=== PATIENT | female | born 1940 | race Caucasian/White ===

== ENCOUNTER 2017-02-13 20:05 | Inpatient (IN) | payer MEDICARE, BC ==
--- NOTE | 2017-02-13 20:31 | EDM.PDOC ---
ED HPI GENERAL MEDICAL PROBLEM - General Chief Complaint: ENT Problem Stated Complaint: TOOTH PAIN FEVER RIB PAINS Time Seen by Provider: 02/13/17 20:30 Source of Information: Reports: Patient History Limitations: Reports: No Limitations - History of Present Illness INITIAL COMMENTS - FREE TEXT/NARRATIVE: 76-year-old female presents to the ED with believe 2 separate problems. First is severe pain in her left temporomandibular joint area with marked swelling. She states this seemed to occur after having dental extraction of a left upper molar about a month ago by dentist in [place]. Dentist yesterday and he felt all was healing up well. Is quite obvious she has a severe swelling on the left temporomandibular joint area and has marked trismus. She hasn't been able to eat solid food for several days. Last 34 days she's developed fever and chills at nighttime. Now is developing a prone productive cough with pleuritic left- sided chest pains. No color to sputum identified. No hemoptysis. Unable to eat at all today. Feels weak dizzy and lightheaded when she stands. Last dose of Aleve was taken at noon today for fever relief. Of note she has rheumatoid arthritis for greater than 20 years and is immunocompromised. She takes 6 tablets of methotrexate on Mondays. She takes prednisone 5 mg once daily. 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 Onset: Gradual Onset Date: 02/11/17 (Gradually were noted fever chills and left-sided chest pain. Swelling left temporomandibular joint area anterior to the left ear for almost a month.) Duration: Day(s): Location: Reports: Face (Left temporomandibular joint area.), Chest (See history of present illness) Quality: Reports: Other (Pressure pain in her left face in the temporal mandibular joint area. Anal is sharp and stabbing with movement and particularly trying to open her mouth. She has severe trismus with only ability to open 2 cm in the midline incisors.) Severity: Severe Improves with: Reports: None Worsens with: Reports: Other (Trying to open her mouth.) Context: Denies: Activity ( Chest pain is worsened by coughing and deep breathing.), Exercise, Lifting, Sick Contact, Trauma, Other Associated Symptoms: Reports: Chest Pain, Cough (Left pleuritic sided chest pain.), Fever/Chills (The last 3 nights.), Loss of Appetite, Malaise, Shortness of Breath, Weakness, Other (Dizzy and lightheaded when standing). Denies: cough w sputum ( Minimal sputum production), Diaphoresis ( Had rigors last night.), Headaches, Nausea/Vomiting, Rash, Seizure, Syncope Treatments PROJECT MGR: Reports: NSAIDS (Aleve taken at noon today 2 tablets) Left Oral/Mouth Pain Score (Numeric/FACES): 10 - Related Data Allergies Allergy/AdvReac Type Severity Reaction Status Date / Time No Known Allergies Allergy Verified 02/13/17 20:19 Home Meds: Home Meds Methotrexate Sodium [Methotrexate] 6 tab PO WEEKLY 02/13/17 [History] atorvaSTATin [Lipitor] 40 mg PO DAILY 02/13/17 [History] predniSONE [Prednisone] 5 mg PO DAILY 02/13/17 [History] Past Medical History Cardiovascular History: Reports: High Cholesterol Musculoskeletal History: Reports: RA - Past Surgical History Musculoskeletal Surgical History: Reports: Arthroscopic Knee, Knee Replacement ( Left total knee replacement the right needs to be done.) Social & Family History - Tobacco Use Smoking Status *Q: Never Smoker - Caffeine Use Caffeine Use: Reports: Coffee - Recreational Drug Use Recreational Drug Use: No - Living Situation & Occupation Living situation: Reports: Occupation: Retired ED ROS ENT - Review of Systems Review Of Systems: See Below Constitutional: Reports: Fever, Chills, Malaise, Weakness, Fatigue, Decreased Appetite, Weight Loss HEENT: Reports: Ear Pain, Other (Severe pain left face anterior to her left ear in the distribution of the temporomandibular joint.). Denies: Eye Discharge, Eye Pain, Hearing Loss, Nosebleed, Nose Pain, Rhinitis, Sinus Problem, Throat Pain, Throat Swelling, Vertigo, Vision Change Respiratory: Reports: Shortness of Breath, Pleuritic Chest Pain, Cough (Left side). Denies: Wheezing, Hemoptysis ( minimal sputum production.) Cardiovascular: Reports: Chest Pain, Dyspnea on Exertion, Lightheadedness, Palpitations. Denies: Blood Pressure Problem (See history present illness), Claudication, Orthopnea Endocrine: Reports: Fatigue (Is aware of her heart rate beating fast in her chest.) GI/Abdominal: Reports: Decreased Appetite. Denies: Abdominal Pain, Nausea, Stool Incontinence, Vomiting : Reports: Incontinence (Usually stress-induced) Musculoskeletal: Reports: Neck Pain (Has chronic rheumatoid arthritis for greater than 20 years.), Shoulder Pain, Arm Pain, Back Pain, Joint Pain, Joint Swelling Skin: Reports: Bruising Neurological: Reports: No Symptoms Psychiatric: Reports: No Symptoms Hematologic/Lymphatic: Reports: No Symptoms Immunologic: Reports: No Symptoms ED EXAM, ENT - Physical Exam Exam: See Below Exam Limited By: No Limitations General Appearance: Alert, WD/WN, Mild Distress, Other (Does feel quite warm to palpation. Nurses report initial temperature 37.4 but it seems much higher than this.) Eye Exam: Bilateral Eye: Normal Inspection Ears: Normal External Exam, Normal TMs, Other (Has an obvious swelling proximal be 5 cm in diameter anterior to the right ear in the distribution of the left temporomandibular joint. It is warm to palpation suggesting underlying inflammation. I suspect this is a activation of rheumatoid arthritis affecting the temporomandibular joint. Less likely would be an infection spreading from a dental abscess into this area.) Mouth/Throat: Normal Inspection, Normal Gums, Normal Lips, Other (Spectral of the area where she had the tooth resected left upper shows that is healing satisfactorily with no sign of conjunctival swelling or infection.) Head: Atraumatic, Normocephalic, Facial Swelling (As above adjacent to the left ear 5 cm swelling in the distribution of the temporomandibular joint.) Neck: Normal Inspection, Limited Range of Motion, Other (Marked crepitus on movement of the neck laterally.). No: Supple, Non-Tender, Full Range of Motion Respiratory/Chest: Chest Non-Tender, Respiratory Distress, Decreased Breath Sounds (Mildly decreased breath sounds to both lower lung cleary.), Rales (Mild tachypnea.), Rhonchi (left lung base left lung mid laterally.). No: Wheezing Cardiovascular: Normal Peripheral Pulses, No Murmur, Tachycardia GI/Abdominal: Normal Bowel Sounds (Resting tachycardia at 1 35/m.), Soft, Non- Tender, No Organomegaly, No Distention Extremities: No Pedal Edema, Joint Swelling (Noted in the MCP joints and knees.) , Other (Mild kyphosis thoracic spine). No: Pedal Edema, Slow Capillary Refill Neurological: Alert, Oriented, CN II-XII Intact, Normal Cognition Psychiatric: Normal Affect Skin: Warm, Dry, Intact, Normal Color, No Rash Course - Vital Signs Last Recorded V/S: Last Vital Signs Temp 37.4 C 02/13/17 20:12 Pulse 135 H 02/13/17 20:12 Resp 18 02/13/17 20:12 BP 132/69 02/13/17 20:12 Pulse Ox 91 L 02/13/17 20:48 - Orders/Labs/Meds Orders: Active Orders 24 hr Category Date Time Status Admission Status [Patient Status] [ADT] Routine ADT 02/13/17 23:32 Ordered EKG Documentation Completion [RC] STAT Care 02/13/17 20:48 Active Oxygen Therapy [RC] ASDIRECTED Care 02/13/17 20:48 Active Chest 2V [CR] Stat Exams 02/13/17 20:47 Taken Chest PE [Ang Chest] [CT] Stat Exams 02/13/17 21:49 Taken Maxillofacial w/o CM [Max Facial Sinus wo Cont] [CT] Exams 02/13/17 20:49 Taken Stat CULTURE BLOOD [BC] Stat Lab 02/13/17 21:00 Received CULTURE BLOOD [BC] Stat Lab 02/13/17 21:10 Received CULTURE URINE [RM] Stat Lab 02/13/17 23:37 Uncollected LACTIC ACID [CHEM] Stat Lab 02/13/17 22:46 Ordered Dextrose 5%-0.9% NaCl [Dextrose 5%-Normal Saline] 1,000 Med 02/13/17 21:00 Active ml IV ASDIRECTED Levofloxacin/Dextrose 5%-Water [Levaquin in D5W 750 MG/ Med 02/13/17 22:38 Active 150 ML] 750 mg Premix Bag 1 bag IV ONETIME Sodium Chloride 0.9% [Normal Saline] 100 ml Med 02/13/17 22:15 Active IV ASDIRECTED Sodium Chloride 0.9% [Saline Flush] Med 02/13/17 22:04 Active 10 ml FLUSH ONETIME PRN Blood Culture x2 Reflex Set [OM.PC] Stat Oth 02/13/17 20:49 Ordered Medication Orders Dextrose/Sodium Chloride (Dextrose 5%-Normal Saline) 1,000 mls @ 999 mls/hr IV ASDIRECTED AGUSTIN Last Admin: 02/13/17 21:14 Dose: 999 mls/hr Sodium Chloride (Normal Saline) 100 mls @ 80 mls/hr IV ASDIRECTED AGUSTIN Last Admin: 02/13/17 22:32 Dose: 80 mls/hr Levofloxacin/Dextrose 750 mg/ (Premix) 150 mls @ 100 mls/hr IV ONETIME ONE Stop: 02/14/17 00:07 Last Admin: 02/13/17 22:59 Dose: 100 mls/hr Sodium Chloride (Saline Flush) 10 ml FLUSH ONETIME PRN PRN Reason: IV FLUSH Last Admin: 02/13/17 22:32 Dose: 10 ml Labs: Laboratory Tests 02/13/17 02/13/17 02/13/17 Range/Units 21:00 21:00 21:00 WBC 19.74 H (3.98-10.04) K/mm3 RBC 3.79 L (3.98-5.22) M/mm3 Hgb 10.7 L (11.2-15.7) gm/L Hct 33.6 L (34.1-44.9) % MCV 88.7 (79.4-94.8) fl MCH 28.2 (25.6-32.2) pg MCHC 31.8 L (32.2-35.5) g/dl RDW Std Deviation 54.1 H (36.4-46.3) fL Plt Count 364 (182-369) K/mm3 MPV 9.1 L (9.4-12.3) fl Neutrophils % (Manual) 87 H (40-60) % Band Neutrophils % 2 (0-10) % Lymphocytes % (Manual) 8 L (20-40) % Atypical Lymphs % 0 % Monocytes % (Manual) 3 (2-10) % Eosinophils % (Manual) 0 L (0.7-5.8) % Basophils % (Manual) 0 L (0.1-1.2) Toxic Granulation Few Platelet Estimate Adequate RBC Morph Comment Normal ESR (0-20) mm/hr PT 11.4 (8.0-13.0) SECONDS INR 1.04 D-Dimer, Quantitative (0.19-0.59) mg/L Sodium 138 (136-145) mEq/L Potassium 3.5 (3.5-5.1) mEq/L Chloride 103 (98-107) mEq/L Carbon Dioxide 24 (21-32) mEq/L Anion Gap 14.5 (5-15) BUN 30 H (7-18) mg/dL Creatinine 0.9 (0.55-1.02) mg/dL Est Cr Clr Drug Dosing 42.72 mL/min Estimated GFR (MDRD) > 60 (>60) mL/min BUN/Creatinine Ratio 33.3 H (14-18) Glucose 112 (83-115) mg/dL Calcium 8.7 (8.5-10.1) mg/dL Magnesium 1.6 L (1.8-2.4) mg/dl Total Bilirubin 0.8 (0.2-1.0) mg/dL AST 26 (15-37) U/L ALT 23 (14-59) U/L Alkaline Phosphatase 134 H (46-116) U/L Troponin I < 0.017 (0.00-0.056) ng/mL C-Reactive Protein 26.4 H* (<1.0) mg/dL B-Natriuretic Peptide (0-100) pg/mL Total Protein 6.5 (6.4-8.2) g/dl Albumin 2.1 L (3.4-5.0) g/dl Globulin 4.4 gm/dL Albumin/Globulin Ratio 0.5 L (1-2) Urine Color (Yellow) Urine Appearance (Clear) Urine pH (5.0-8.0) Ur Specific [place] (1.005-1.030) Urine Protein (Negative) Urine Glucose (UA) (Negative) Urine Ketones (Negative) Urine Occult Blood (Negative) Urine Nitrite (Negative) Urine Bilirubin (Negative) Urine Urobilinogen (0.2-1.0) Ur Leukocyte Esterase (Negative) Urine RBC (0-5) /hpf Urine WBC (0-5) /hpf Ur Epithelial Cells (0-5) /hpf Urine Bacteria (FEW) /hpf Hyaline Casts (0-5) /lpf Waxy Casts (0-5) /lpf Urine Mucus (FEW) /hpf 02/13/17 02/13/17 02/13/17 Range/Units 21:00 21:00 21:00 WBC (3.98-10.04) K/mm3 RBC (3.98-5.22) M/mm3 Hgb (11.2-15.7) gm/L Hct (34.1-44.9) % MCV (79.4-94.8) fl MCH (25.6-32.2) pg MCHC (32.2-35.5) g/dl RDW Std Deviation (36.4-46.3) fL Plt Count (182-369) K/mm3 MPV (9.4-12.3) fl Neutrophils % (Manual) (40-60) % Band Neutrophils % (0-10) % Lymphocytes % (Manual) (20-40) % Atypical Lymphs % % Monocytes % (Manual) (2-10) % Eosinophils % (Manual) (0.7-5.8) % Basophils % (Manual) (0.1-1.2) Toxic Granulation Platelet Estimate RBC Morph Comment ESR 111 H (0-20) mm/hr PT (8.0-13.0) SECONDS INR D-Dimer, Quantitative 4.36 H (0.19-0.59) mg/L Sodium (136-145) mEq/L Potassium (3.5-5.1) mEq/L Chloride (98-107) mEq/L Carbon Dioxide (21-32) mEq/L Anion Gap (5-15) BUN (7-18) mg/dL Creatinine (0.55-1.02) mg/dL Est Cr Clr Drug Dosing mL/min Estimated GFR (MDRD) (>60) mL/min BUN/Creatinine Ratio (14-18) Glucose (83-115) mg/dL Calcium (8.5-10.1) mg/dL Magnesium (1.8-2.4) mg/dl Total Bilirubin (0.2-1.0) mg/dL AST (15-37) U/L ALT (14-59) U/L Alkaline Phosphatase (46-116) U/L Troponin I (0.00-0.056) ng/mL C-Reactive Protein (<1.0) mg/dL B-Natriuretic Peptide 101 H (0-100) pg/mL Total Protein (6.4-8.2) g/dl Albumin (3.4-5.0) g/dl Globulin gm/dL Albumin/Globulin Ratio (1-2) Urine Color (Yellow) Urine Appearance (Clear) Urine pH (5.0-8.0) Ur Specific [place] (1.005-1.030) Urine Protein (Negative) Urine Glucose (UA) (Negative) Urine Ketones (Negative) Urine Occult Blood (Negative) Urine Nitrite (Negative) Urine Bilirubin (Negative) Urine Urobilinogen (0.2-1.0) Ur Leukocyte Esterase (Negative) Urine RBC (0-5) /hpf Urine WBC (0-5) /hpf Ur Epithelial Cells (0-5) /hpf Urine Bacteria (FEW) /hpf Hyaline Casts (0-5) /lpf Waxy Casts (0-5) /lpf Urine Mucus (FEW) /hpf 02/13/17 Range/Units 22:43 WBC (3.98-10.04) K/mm3 RBC (3.98-5.22) M/mm3 Hgb (11.2-15.7) gm/L Hct (34.1-44.9) % MCV (79.4-94.8) fl MCH (25.6-32.2) pg MCHC (32.2-35.5) g/dl RDW Std Deviation (36.4-46.3) fL Plt Count (182-369) K/mm3 MPV (9.4-12.3) fl Neutrophils % (Manual) (40-60) % Band Neutrophils % (0-10) % Lymphocytes % (Manual) (20-40) % Atypical Lymphs % % Monocytes % (Manual) (2-10) % Eosinophils % (Manual) (0.7-5.8) % Basophils % (Manual) (0.1-1.2) Toxic Granulation Platelet Estimate RBC Morph Comment ESR (0-20) mm/hr PT (8.0-13.0) SECONDS INR D-Dimer, Quantitative (0.19-0.59) mg/L Sodium (136-145) mEq/L Potassium (3.5-5.1) mEq/L Chloride (98-107) mEq/L Carbon Dioxide (21-32) mEq/L Anion Gap (5-15) BUN (7-18) mg/dL Creatinine (0.55-1.02) mg/dL Est Cr Clr Drug Dosing mL/min Estimated GFR (MDRD) (>60) mL/min BUN/Creatinine Ratio (14-18) Glucose (83-115) mg/dL Calcium (8.5-10.1) mg/dL Magnesium (1.8-2.4) mg/dl Total Bilirubin (0.2-1.0) mg/dL AST (15-37) U/L ALT (14-59) U/L Alkaline Phosphatase (46-116) U/L Troponin I (0.00-0.056) ng/mL C-Reactive Protein (<1.0) mg/dL B-Natriuretic Peptide (0-100) pg/mL Total Protein (6.4-8.2) g/dl Albumin (3.4-5.0) g/dl Globulin gm/dL Albumin/Globulin Ratio (1-2) Urine Color Yellow (Yellow) Urine Appearance Clear (Clear) Urine pH 6.5 (5.0-8.0) Ur Specific [place] 1.020 (1.005-1.030) Urine Protein 2+ H (Negative) Urine Glucose (UA) 1+ H (Negative) Urine Ketones Trace H (Negative) Urine Occult Blood Negative (Negative) Urine Nitrite Positive H (Negative) Urine Bilirubin Negative (Negative) Urine Urobilinogen 4.0 H (0.2-1.0) Ur Leukocyte Esterase Trace H (Negative) Urine RBC 0-5 (0-5) /hpf Urine WBC 10-20 H (0-5) /hpf Ur Epithelial Cells 0-5 (0-5) /hpf Urine Bacteria Many H (FEW) /hpf Hyaline Casts 0-5 (0-5) /lpf Waxy Casts 0-5 (0-5) /lpf Urine Mucus Moderate H (FEW) /hpf Meds: Medications Generic Name Dose Route Start Last Admin Trade Name Freq PRN Reason Stop Dose Admin Dextrose/Sodium Chloride 1,000 mls @ 999 mls/hr 02/13/17 21:00 02/13/17 21:14 Dextrose 5%-Normal Saline IV 999 mls/hr ASDIRECTED AGUSTIN Administration Sodium Chloride 100 mls @ 80 mls/hr 02/13/17 22:15 02/13/17 22:32 Normal Saline IV 80 mls/hr ASDIRECTED AGUSTIN Administration Levofloxacin/Dextrose 750 mg/ 150 mls @ 100 mls/hr 02/13/17 22:38 02/13/17 22 :59 Premix IV 02/14/17 00:07 100 mls/hr ONETIME ONE Administration Sodium Chloride 10 ml 02/13/17 22:04 02/13/17 22:32 Saline Flush FLUSH 10 ml ONETIME PRN Administration IV FLUSH Discontinued Medications Generic Name Dose Route Start Last Admin Trade Name Michael PRN Reason Stop Dose Admin Clonazepam 1 mg 02/13/17 23:22 Klonopin PO 02/13/17 23:23 ONETIME ONE Hydromorphone HCl 0.5 mg 02/13/17 23:22 Dilaudid IVPUSH 02/13/17 23:23 ONETIME ONE Ibuprofen 600 mg 02/13/17 20:46 02/13/17 21:12 Motrin PO 02/13/17 20:47 600 mg ONETIME ONE Administration Iopamidol 100 ml 02/13/17 22:04 02/13/17 22:32 Isovue-370 (76%) IVPUSH 02/13/17 22:05 60 ml ONETIME ONE Administration Methylprednisolone Sodium Succinate 40 mg 02/13/17 22:00 02/13/17 22:26 Solu-Medrol IVPUSH 02/13/17 22:01 40 mg ONETIME ONE Administration Ondansetron HCl 4 mg 02/13/17 23:22 Zofran IVPUSH 02/13/17 23:23 ONETIME ONE - Radiology Interpretation Free Text/Narrative:: 76-year-old female presents to the ED with a history of fever and chills 3 nights with rigors last night. Associated fever of 102.3 at home. She feels warm to palpation her as well. Left-sided chest pain with pleuritic component. A mild cough that is minimally productive of sputum. Associated severe pain and swelling in the distribution of the left temporomandibular joint since having a tooth resected in that area about a month ago. She has severe trismus. This is limited ability to take fluids and solids for the last month. Resting tachycardia of 1 35/m partially aggravated by fever but partially aggravated by ongoing depletion. She is immunocompromised because of rheumatoid arthritis treatment with methotrexate and prednisone 5 mg daily. I.e. steroid dependent. Concern for flareup of rheumatoid arthritis affecting the left temporomandibular joint. Less likely infection spread to the area. Suspect possible pneumonia left lung field. Plan 2 view chest x-ray to be obtained CT of the maxillofacial bones including the mandible. Labs to include blood cultures 2 sedimentation rate and CRP. D-dimer also ordered. IV will be D5 normal saline at open. Motrin 600 mg by mouth by mouth for fever relief - Re-Assessments/Exams Free Text/Narrative Re-Assessment/Exam: 02/13/17 21:58 oxygen saturations are staying around 9891% on room air. She'll therefore be placed on oxygen 2 L/m by nasal cannula. She is splinting on the left side. Chest x-ray done shows a mild left-sided pleural effusion without obvious pneumonia. Silhouette is normal. She has hyperinflated lung cleary. She states she used to smoke but quit many years ago. PT came back 11.4 with an INR 1.04. D-dimer came back elevated at 4.36. This is likely secondary to underlying infective process. Therefore CT pulmonary angiogram will be done to rule out pulmonary embolism and also better look at the cause of the left-sided pleural effusion. Crowding is 0.9 therefore she will be able to tolerate contrast. There are CBC is pending. I will give her Solu-Medrol 40 mg IV push at this time as she is steroid dependent. Waiting on labs before deciding on antibiotic therapy. CT of the facial bones and particularly views of the left mandible shows cystic degeneration within the head of the mandible . There is diffuse moderate osteopenia appreciable .Temporomandibular joint degenerative disease bilaterally. coworker will thinning of the left condylar head and neck are also appreciated as response to osteal lucent medullary process may be causing the severe pain. Cannot rule out a pathologic hairline fracture in this area. 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 He also appreciates some air or gas collections in the area of recent molar extraction nonexclusive's of secondary infection of the socket. She doesn't have pain in this area to correlate with this finding. no dislocation or abnormalities or fractures. Appears to be significant inflammation of the left TMJ secondary to rheumatoid arthritis flareup in this area. He rides intravenously initially and then orally will likely take the swelling down. 02/13/17 22:38 lab work is returned revealing an elevated white count at 19.74 with 87% neutrophils and 2% bands. Hemoglobin is low at 10.7 likely due to anemia of chronic disease. Hematocrit is 33.6. Plan is 364,000. Sedimentation rate is markedly elevated at 111. PT is 11.4 with an INR of 1.04. D-dimer was elevated at 4.36 as previously mentioned. CRP is markedly elevated at 26.4 BNP 101. Sodium 138 potassium low at 3.5. Chloride 103 bicarbonate 24. And a gap is normal at 14.5 B1 is mildly elevated at 30 creatinine was 0.9 EGFR is greater than 60. Plan we'll start her on Levaquin [address] pulmonary grams been completed and shows no evidence of pulmonary embolism. Several granulomas or nodules noted in the left lung field some of them appear to be attached to the pleura. There is a small left-sided pleural effusion. No consolidation is evident to suggest a pneumonic process. There is one nodule in the right upper lobe of the lung as well. Awaiting radiologist's report in this regard. 02/13/17 23:06 radiology reports no evidence of pulmonary embolism either. His comment on the lung nodules is that of a 1.9 cm x 1.1 cm left upper lobe inferior laterally scattered nodular atelectasis throughout both lungs bilobate nodule measuring 1.5 cm x 2 cm right upper lobe anteriorly rounded nodule posteriorly right upper lobe measuring 9.3 mm 12 mm diameter round nodule laterally at the lingula anterior to the bilobate nodule measuring 15 x 5.3 mm. Depending congestion in both lower lobes minimal infiltrate felt to be present in the left lower lobe likely early pneumonia. Does comment on the small left- sided pleural effusion. Appreciate small hiatal hernia with distended esophagus with mild wall thickening. Therefore impression is multiple nodules bilaterally with scattered areas of nodular infiltrative change atypical infection is possible neoplasm cannot be excluded. Patient will be admitted to the hospital and I will contact Dr. Schmidt intercell connector placer hospitalist in this regard. 02/13/17 23:38 urinalysis is on the back as well. It shows 2+ protein 1+ glucose. It is nitrate positive with trace leukocyte esterase and 10-20 WBCs and moderate bacteria reported also moderate mucus. A urine culture was therefore ordered. Did speak with Dr. Frazier and patient will be admitted to the med surgery floor on telemetry. Orders were written. Departure - Departure Time of Disposition: 23:29 Disposition: Admitted As Inpatient 67 Condition: Fair Clinical Impression: Acute febrile illness, Pleural effusion, left, Multiple pulmonary nodules, Disorder of left temporomandibular joint, Immunocompromised due to corticosteroids, Urinary tract infection Pneumonia Qualifiers: Pneumonia type: due to unspecified organism Laterality: left Lung location: lower lobe of lung Qualified Code(s): J18.1 - Lobar pneumonia, unspecified organism Rheumatoid arthritis Qualifiers: Rheumatoid arthritis location: multiple sites Rheumatoid factor presence: unspecified presence Qualified Code(s): M06.9 - Rheumatoid arthritis, unspecified - Discharge Information Referrals: PCP,None [Primary Care Provider] - Forms: ED Department Discharge - My Orders Last 24 Hours: My Active Orders 02/13/17 20:47 Chest 2V [CR] Stat 02/13/17 20:48 EKG Documentation Completion [RC] STAT Oxygen Therapy [RC] ASDIRECTED 02/13/17 20:49 Maxillofacial w/o CM [Max Facial Sinus wo Cont] [CT] Stat Blood Culture x2 Reflex Set [OM.PC] Stat 02/13/17 21:00 CULTURE BLOOD [BC] Stat Dextrose 5%-0.9% NaCl [Dextrose 5%-Normal Saline] 1,000 ml IV ASDIRECTED 02/13/17 21:10 CULTURE BLOOD [BC] Stat 02/13/17 21:49 Chest PE [Ang Chest] [CT] Stat 02/13/17 22:04 Sodium Chloride 0.9% [Saline Flush] 10 ml FLUSH ONETIME PRN 02/13/17 22:15 Sodium Chloride 0.9% [Normal Saline] 100 ml IV ASDIRECTED 02/13/17 22:38 Levofloxacin/Dextrose 5%-Water [Levaquin in D5W 750 MG/150 ML] 750 mg Premix Bag 1 bag IV ONETIME 02/13/17 22:46 LACTIC ACID [CHEM] Stat 02/13/17 23:32 Admission Status [Patient Status] [ADT] Routine 02/13/17 23:37 CULTURE URINE [RM] Stat - Assessment/Plan Last 24 Hours: My Active Orders 02/13/17 20:47 Chest 2V [CR] Stat 02/13/17 20:48 EKG Documentation Completion [RC] STAT Oxygen Therapy [RC] ASDIRECTED 02/13/17 20:49 Maxillofacial w/o CM [Max Facial Sinus wo Cont] [CT] Stat Blood Culture x2 Reflex Set [OM.PC] Stat 02/13/17 21:00 CULTURE BLOOD [BC] Stat Dextrose 5%-0.9% NaCl [Dextrose 5%-Normal Saline] 1,000 ml IV ASDIRECTED 02/13/17 21:10 CULTURE BLOOD [BC] Stat 02/13/17 21:49 Chest PE [Ang Chest] [CT] Stat 02/13/17 22:04 Sodium Chloride 0.9% [Saline Flush] 10 ml FLUSH ONETIME PRN 02/13/17 22:15 Sodium Chloride 0.9% [Normal Saline] 100 ml IV ASDIRECTED 02/13/17 22:38 Levofloxacin/Dextrose 5%-Water [Levaquin in D5W 750 MG/150 ML] 750 mg Premix Bag 1 bag IV ONETIME 02/13/17 22:46 LACTIC ACID [CHEM] Stat 02/13/17 23:32 Admission Status [Patient Status] [ADT] Routine 02/13/17 23:37 CULTURE URINE [RM] Stat
[2017-02-13] MEDS ORDERED: Ibuprofen 600 MG Tab PO ONE (20:46)
[2017-02-13] MEDS ORDERED: Dextrose 5%-0.9% NaCl 1,000 ML IV SCH (21:00)
[2017-02-13] MEDS ORDERED: methylPREDNISolone Sodium Succinate 40 MG/1 ML SDV IVPUSH ONE (22:00)
[2017-02-13] MEDS ORDERED: Sodium Chloride 0.9% 10 ML Syringe FLUSH PRN (22:04)
[2017-02-13] MEDS ORDERED: Iopamidol 755 Mg/ML 100 ML Bottle IVPUSH ONE (22:04)
[2017-02-13] MEDS ORDERED: Sodium Chloride 0.9% 100 ML IV SCH (22:15)
[2017-02-13] MEDS ORDERED: Levofloxacin/Dextrose 5%-Water 750 MG in Premix Bag 1 BAG IV ONE (22:38)
[2017-02-13] MEDS ORDERED: HYDROmorphone 0.5 MG/0.5 ML Syringe IVPUSH ONE (23:22)
[2017-02-13] MEDS ORDERED: Ondansetron 4 MG/2 ML SDV IVPUSH ONE (23:22)
[2017-02-13] MEDS ORDERED: ClonazePAM 1 MG Tab PO ONE (23:22)
[2017-02-14] MEDS ORDERED: Ondansetron 4 MG Tab.DIS PO PRN (01:41)
[2017-02-14] MEDS ORDERED: Dextrose 5%-0.9% NaCl 1,000 ML IV SCH (02:15)
[2017-02-14] MEDS: Potassium Chloride 100 ML IV SCH ×4 (02:55→13:17)
--- NOTE | 2017-02-14 07:33 | PCM.HP ---
H&P History of Present Illness - General Date of Service: 02/14/17 Admit Problem/Dx: Admission Diagnosis/Problem Admission Diagnosis/Problem Fever Source of Information: Patient, Family, Old Records, Provider, RN Notes Reviewed History Limitations: Reports: No Limitations - History of Present Illness Initial Comments - Free Text/Narative: This is a 76-year-old elderly white female with past medical history of hyperlipidemia and degenerative joint disease who comes in to the emergency department with 2 separate complaints: 1) left temporo-mandibular pain associated with edema status post tooth extraction and 2) left sided pleuritic chest pain associated with some productive cough along with fever and chills. Patient also reports reduced intake due to his jaw pain. She feels weak, fatigue , shortness of breath, and lightheaded/dizzy when she gets up.Patient recently had her upper molar taken out about a month ago by a dentist in her local town. She followed up with him a couple of days ago and felt it was healing all well. Patient is currently taking NSAID daily for treatment of her symptoms but w/o much relief. She also carries a history of rheumatoid arthritis more than 20 years now daily and she takes methotrexate 6 tablets on Mondays and 5 mg of prednisone daily. Patient follows Dr. Felder" in [facility] for her RA. Initial workup in the emergency department shows a CBC significant for WBC of 19.74, hemoglobin of 10.7, hematocrit of 33.6, neutrophils of 87%, and ESR of 111. Coagulation study shows PT of 11.4, INR of 1.04, and d-dimer O4.36. Her chemistry is remarkable for BUN of 30, admission of 1.6, alkaline phosphatase of 134, CRP of 26.4, BNP of 101 and albumin of 2.1. The UA is suggestive of urinary tract infection. CT scan of her maxillofacial without contrast V-rad report reads: Complex changes of fibrous dysplasia or possibly decreased within the patient to Rafaela pathologic fracture at or near the TMJ on the left with D and resulting recurrent pain. Recent left mandibular molar extraction with subtle gas collection exclusive of secondary infection of socket. CT scan with contrast V-rad report reads multiple nodules bilaterally with scattered areas of nodular infiltrative change, atypical infection is possible. Neoplasm cannot be excluded. PET scan follow-up recommended. Patient was admitted last night for Pneumonia, UTI and Disorder of temporo- mandibular joint. She is full code. .. Left Oral/Mouth Pain Score (Numeric/FACES): 10 - Related Data Allergies/Adverse Reactions: Allergies Allergy/AdvReac Type Severity Reaction Status Date / Time No Known Allergies Allergy Verified 02/13/17 20:19 Home Medications: Home Meds Methotrexate Sodium [Methotrexate] 6 tab PO WEEKLY 02/13/17 [History] atorvaSTATin [Lipitor] 40 mg PO BEDTIME 02/13/17 [History] predniSONE [Prednisone] 5 mg PO BEDTIME 02/13/17 [History] Calcium Carbonate [Calcium] 500 mg PO BEDTIME 02/14/17 [History] Folic Acid 1 mg PO BEDTIME 02/14/17 [History] Past Medical History Cardiovascular History: Reports: High Cholesterol [employer] OFFICER History: Reports: Other OB/BYN History: vulvaectomy (2004) Musculoskeletal History: Reports: RA Immunologic History: Reports: Immunosuppression Dermatologic History: Reports: Benign Melanoma - Infectious Disease History Infectious Disease History: Reports: Chicken Pox, Influenza, Measles, Shingles - Past Surgical History GI Surgical History: Reports: Colonoscopy, Polypectomy Musculoskeletal Surgical History: Reports: Arthroscopic Knee, Knee Replacement Dermatological Surgical History: Reports: Skin Biopsy Social & Family History - Family History Family Medical History: Noncontributory - Tobacco Use Smoking Status *Q: Former Smoker Used Tobacco, but Quit: Yes Month Tobacco Last Used: 08/17/1968 Tobacco Use Comment: quit smoking 50 years ago Second Hand Smoke Exposure: No - Caffeine Use Caffeine Use: Reports: Coffee - Alcohol Use Date of Last Drink: 02/06/17 - Recreational Drug Use Recreational Drug Use: No - Living Situation & Occupation Living situation: Reports: Occupation: Retired H&P Review of Systems - Review of Systems: Review Of Systems: ROS reveals no pertinent complaints other than HPI. Review of Systems Comment:: No overnight issues. She feels much better now. She has no new complaints. 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 No obvious facial swelling/erythema. Unable to fully open her mouth.) Neck: Supple, Trachea Midline, Lymphadenopathy. No: Full Range of Motion, JVD Lungs: Normal Respiratory Effort, Decreased Breath Sounds, Rales, Rhonchi, Other (no tachypnea) Cardiovascular: Regular Rate, Regular Rhythm Abdomen: Normal Bowel Sounds, Soft. No: Pelvis Stable, Organomegaly, Tenderness (Female) Exam: Deferred Rectal (Female) Exam: Deferred Back Exam: Normal Inspection, Decreased Range of Motion Extremities: Normal Inspection, Normal Pulses, Other (Multiple joint swelling ) . No: Clubbing, Cyanosis, Calf Tenderness, Edema Peripheral Pulses: 2+: Posterior Tibial (L), Posterior Tibial (R), Dorsalis Pedis (L), Dorsalis Pedis (R) Skin: Warm, Dry, Intact Neuro Extensive - Mental Status: Oriented x3, Normal Cognition, Memory Intact Neuro Extensive - Motor, Sensory, Reflexes: CN II-XII Intact, Normal Gait Psychiatric: Alert, Normal Affect, Normal Mood - Patient Data Result Diagrams: 02/14/17 08:55 02/14/17 08:55 EKG INTERPRETATION EKG Date: 02/13/17 Time: 21:52 Rhythm: Other (Sinus Tachycardia) Rate (Beats/Min): 121 [place]: LAD-Left [place] Deviation *Q Meaningful Use (ADM) - VTE *Q VTE Criteria *Q: - Stroke *Q Stroke Criteria *Q: - AMI *Q AMI Criteria *Q: Problem List Initiated/Reviewed/Updated: Yes Orders Last 24hrs: Active Orders 24 hr Category Date Time Status Up With Assistance [RC] DAILY Care 02/14/17 01:41 Active Vaccines to be Administered [RC] PER UNIT ROUTINE Care 02/14/17 04:01 Active Regular Diet [DIET] Diet 02/14/17 Breakfast Active CBC W/O DIFF,HEMOGRAM [HEME] MOTH@0700 Lab 02/16/17 07:00 Ordered CBC W/O DIFF,HEMOGRAM [HEME] MOTH@0700 Lab 02/19/17 07:00 Ordered CBC W/O DIFF,HEMOGRAM [HEME] MOTH@0700 Lab 02/23/17 07:00 Ordered CBC W/O DIFF,HEMOGRAM [HEME] MOTH@0700 Lab 02/26/17 07:00 Ordered CBC W/O DIFF,HEMOGRAM [HEME] MOTH@0700 Lab 03/02/17 07:00 Ordered CBC W/O DIFF,HEMOGRAM [HEME] MOTH@0700 Lab 03/05/17 07:00 Ordered CULTURE URINE [RM] Stat Lab 02/13/17 22:45 Received Dextrose 5%-0.9% NaCl [Dextrose 5%-Normal Saline] 1,000 Med 02/14/17 02:15 Active ml IV ASDIRECTED Diphth,Pertuss(Acell),Tet Vac [Boostrix] Med 02/16/17 04:00 Once 0.5 ml IM .ONCE ONE Enoxaparin [Lovenox] Med 02/14/17 09:00 Active 40 mg SUBCUT DAILY Ibuprofen [Motrin] Med 02/14/17 01:41 Active 600 mg PO Q6H PRN Lactated Ringers [Ringers, Lactated] 1,000 ml Med 02/14/17 01:45 Active IV ASDIRECTED Ondansetron [Zofran ODT] Med 02/14/17 01:41 Active 4 mg PO Q6H PRN Potassium Chloride [KCl 10 MEQ in Water 100 ML] 100 ml Med 02/14/17 02:15 Active IV ASDIRECTED Resuscitation Status Routine Resus Stat 02/14/17 01:38 Ordered Medication Orders Diphtheria/Tetanus/Acell Pertussis (Boostrix) 0.5 ml IM .ONCE ONE Stop: 02/16/17 04:01 Enoxaparin Sodium (Lovenox) 40 mg SUBCUT DAILY [facility] Lactated Ringer's (Ringers, Lactated) 1,000 mls @ 125 mls/hr IV ASDIRECTED AGUSTIN Dextrose/Sodium Chloride (Dextrose 5%-Normal Saline) 1,000 mls @ 75 mls/hr IV ASDIRECTED AGUSTIN Last Admin: 02/14/17 02:47 Dose: 75 mls/hr Potassium Chloride (Kcl 10 Meq In Water 100 Ml) 100 mls @ 50 mls/hr IV ASDIRECTED AGUSTIN Last Admin: 02/14/17 06:17 Dose: 50 mls/hr Infusion: 02/14/17 04:55 Dose: 50 mls/hr Admin: 02/14/17 02:55 Dose: 50 mls/hr Ibuprofen (Motrin) 600 mg PO Q6H PRN PRN Reason: Fever Ondansetron HCl (Zofran Odt) 4 mg PO Q6H PRN PRN Reason: Nausea/Vomiting Assessment/Plan Comment:: Assessment/Plan: Acute: Community Acquired PNA w/ Immuno-compromised State - Risk factors: Pulmonary RA - Received IV leavquin in ED overnight - Continue IV Levaquin and will add Zosyn for pharmacy to dose due to immuno- compromised state - Probiotic TID - IS as directed - Serial CXR - Supplemental O2 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 Puentes, [facility] in [place] - We have no baseline chest CT scan on her - Continue MTX and Oral Steroid - Defer PET scan out patient until she follows up with her [facility] [employer] UTI - UA pos for UTI - Consider yeast infection: due to MTX and Steroid - Pending UA Cx/Sx - Continue IV Abx Leukoctyosis - Demargination vs Infection - She is on steroid daily - CRP/ESR is a poor marker at this time (these are elevated in patient with hyped-up immune system) - Will continue to monitor Elevated D-Dimer - 4.36 - 2/2 PNA and Pleural Effusion - CTA negative for PE Hypomagnesemia - Mg 1.6 - Likely from inadequate intake due to TMJ problem - Will replete and monitor 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
[2017-02-14] MEDS ORDERED: Temazepam 15 MG Cap PO PRN (08:40)
[2017-02-14] MEDS ORDERED: Bisacodyl 5 MG Tab PO PRN (08:40)
[2017-02-14] MEDS ORDERED: Polyethylene Glycol 3350 Powder 17 GM Packet PO PRN (08:40)
[2017-02-14] MEDS ORDERED: HYDROmorphone 1 MG/ML Syringe IVPUSH PRN (08:40)
[2017-02-14] MEDS ORDERED: Albuterol/Ipratropium 3.0-0.5 MG/3 ML Neb Soln NEB PRN (08:40)
[2017-02-14] MEDS ORDERED: Docusate Sodium 100 MG Cap PO PRN (08:40)
[2017-02-14] MEDS ORDERED: Promethazine 12.5 MG in Sodium Chloride 0.9% 50 ML IV PRN (08:40)
[2017-02-14] MEDS ORDERED: LORazepam 2 MG/ML MDV IV PRN (08:40)
[2017-02-14] MEDS ORDERED: hydrALAZINE 20 MG/ML SDV IVPUSH PRN (08:46)
[2017-02-14] MEDS ORDERED: Metoprolol Tartrate 5 MG/5 ML SDV IVPUSH PRN (08:46)
[2017-02-14] MEDS ORDERED: Piperacillin/Tazobactam 4.5 GM in Sodium Chloride 0.9% 100 ML IV ONE (09:00)
[2017-02-14] MEDS ORDERED: Famotidine 20 MG Tab PO SCH (09:00)
[2017-02-14] MEDS: Saccharomyces Boulardii (Probiotic) 250 MG Cap PO SCH ×3 (09:29→21:51)
[2017-02-14] MEDS: Enoxaparin 40 MG/0.4 ML Syringe SUBCUT SCH (09:29)
[2017-02-14] MEDS ORDERED: Magnesium Sulfate/Water 2 GM in Premix Bag 1 BAG IV ONE (10:00)
[2017-02-14] MEDS: Potassium Chloride 20 MEQ Tab.ER PO SCH ×2 (12:14→12:24)
[2017-02-14] MEDS: Ibuprofen 600 MG Tab PO PRN (13:15)
[2017-02-14] MEDS: Piperacillin/Tazobactam 4.5 GM in Sodium Chloride 0.9% 100 ML IV SCH (16:03)
[2017-02-14] MEDS: Lactated Ringers 1,000 ML IV SCH (17:33)
--- NOTE | 2017-02-14 19:00 | PCM.SN ---
- Free Text/Narrative Note: Patient seen and examined with present at bedside. She is doing much better. She is now sating well on RA. She has no new complaints. She would like to have some protein shakes, chocolate flavor.
[2017-02-14] MEDS ORDERED: Levofloxacin/Dextrose 5%-Water 750 MG in Premix Bag 1 BAG IV SCH ×2 (20:45→21:00)
[2017-02-14] MEDS: Rosuvastatin 10 MG Tab PO SCH (21:51)
[2017-02-14] MEDS: Folic Acid 1 MG Tab PO SCH (21:51)
[2017-02-14] MEDS: predniSONE 5 MG Tab PO SCH (21:51)
[2017-02-14] MEDS: Calcium Carbonate 500 MG Tab.Chew PO SCH (21:51)
[2017-02-14] MEDS: Acetaminophen/HYDROcodone 325-5 MG Tab PO PRN (23:37)
[2017-02-15] MEDS: Piperacillin/Tazobactam 4.5 GM in Sodium Chloride 0.9% 100 ML IV SCH ×3 (01:44→16:50)
[2017-02-15] MEDS: Lactated Ringers 1,000 ML IV SCH (01:44)
[2017-02-15] MEDS: Famotidine 20 MG Tab PO SCH (08:05)
[2017-02-15] MEDS: Saccharomyces Boulardii (Probiotic) 250 MG Cap PO SCH ×3 (08:05→21:38)
[2017-02-15] MEDS: Enoxaparin 40 MG/0.4 ML Syringe SUBCUT SCH (08:05)
--- NOTE | 2017-02-15 10:55 | PCM.PN ---
- General Info Date of Service: 02/15/17 Admission Dx/Problem (Free Text): Admission Diagnosis/Problem Admission Diagnosis/Problem Fever Subjective Update: Follow Up Functional Status: Reports: pain controlled, tolerating diet, ambulating, urinating. Denies: new symptoms - Review of Systems General: Denies: Fever, Weakness, Fatigue, Malaise, Chills HEENT: Reports: no symptoms Pulmonary: Denies: shortness of breath Cardiovascular: Denies: Chest Pain Gastrointestinal: Denies: Abdominal pain, Nausea, Vomiting Genitourinary: Reports: no symptoms Musculoskeletal: Reports: no symptoms Skin: Reports: no symptoms Neurological: Denies: Confusion, Difficulty Walking, Weakness, Gait Disturbance Psychiatric: Denies: depression, anxiety, agitation, hallucinations Systems Review Comment:: No overnight issues. She slept on and off last night but otherwise she feels pretty good. Her Hgb dropped to 8.5 this am. No GI or active bleeding reported. Her WBC went up but CRP is down. Her intake has improved. She has no new complaints. - Patient Data Vitals - most recent: Last Vital Signs Temp 36.6 C 02/15/17 07:46 Pulse 64 02/15/17 07:46 Resp 18 02/15/17 07:46 BP 130/69 02/15/17 07:46 Pulse Ox 96 02/15/17 07:46 Weight - most recent: 60.555 kg I&O - last 24 hours: Intake & Output 02/14/17 02/15/17 02/15/17 22:59 06:59 14:59 Intake Total 2079 6286 Output Total 651 650 Balance 1428 1706 Lab Results last 24 hrs: Laboratory Results - last 24 hr 02/15/17 02/15/17 Range/Units 05:29 05:29 WBC 17.18 H (3.98-10.04) K/mm3 RBC 3.02 L (3.98-5.22) M/mm3 Hgb 8.5 L (11.2-15.7) gm/L Hct 27.7 L (34.1-44.9) % MCV 91.7 (79.4-94.8) fl MCH 28.1 (25.6-32.2) pg MCHC 30.7 L (32.2-35.5) g/dl RDW Std Deviation 55.8 H (36.4-46.3) fL Plt Count 256 (182-369) K/mm3 MPV 9.7 (9.4-12.3) fl Neut % (Auto) 90.0 H (34.0-71.1) % Lymph % (Auto) 4.7 L (19.3-51.7) % [place] % (Auto) 4.7 (4.7-12.5) % Eos % (Auto) 0.1 L (0.7-5.8) Baso % (Auto) 0.1 (0.1-1.2) % Neut # (Auto) 15.48 H (1.56-6.13) K/mm3 Lymph # (Auto) 0.81 L (1.18-3.74) K/mm3 [place] # (Auto) 0.80 H (0.24-0.36) K/mm3 Eos # (Auto) 0.01 L (0.04-0.36) K/mm3 Baso # (Auto) 0.01 (0.01-0.08) K/mm3 Manual Slide Review Abnormal smear Sodium 140 (136-145) mEq/L Potassium 4.7 (3.5-5.1) mEq/L Chloride 110 H (98-107) mEq/L Carbon Dioxide 22 (21-32) mEq/L Anion Gap 12.7 (5-15) BUN 19 H (7-18) mg/dL Creatinine 1.0 (0.55-1.02) mg/dL Est Cr Clr Drug Dosing 38.44 mL/min Estimated GFR (MDRD) 54 (>60) mL/min BUN/Creatinine Ratio 19.0 H (14-18) Glucose 131 H (83-115) mg/dL Calcium 7.9 L (8.5-10.1) mg/dL Magnesium 2.2 (1.8-2.4) mg/dl C-Reactive Protein 15.6 H* (<1.0) mg/dL Med Orders - Current: Current Medications Hydrocodone Bitart/Acetaminophen ([place] 325-5 Mg) 1 tab PO Q4H PRN PRN Reason: Pain (moderate 4-6) Last Admin: 02/14/17 23:37 Dose: 1 tab Albuterol/Ipratropium (Duoneb 3.0-0.5 Mg/3 Ml) 3 ml NEB Q4H PRN PRN Reason: Shortness Of Breath/wheezing Bisacodyl (Dulcolax) 5 mg PO DAILY PRN PRN Reason: Constipation Calcium Carbonate/Glycine (Tums) 500 mg PO BEDTIME [facility] Last Admin: 02/14/17 21:51 Dose: 500 mg Diphtheria/Tetanus/Acell Pertussis (Boostrix) 0.5 ml IM .ONCE ONE Stop: 02/16/17 04:01 Docusate Sodium (Colace) 100 mg PO BID PRN PRN Reason: Constipation Enoxaparin Sodium (Lovenox) 40 mg SUBCUT DAILY [facility] Last Admin: 02/15/17 08:05 Dose: 40 mg Famotidine (Pepcid) 20 mg PO DAILY [facility] Last Admin: 02/15/17 08:05 Dose: 20 mg Folic Acid (Folic Acid) 1 mg PO BEDTIME [facility] Last Admin: 02/14/17 21:51 Dose: 1 mg Hydralazine HCl (Apresoline) 20 mg IVPUSH Q4H PRN PRN Reason: Hypertension Hydromorphone HCl (Dilaudid) 0.25 mg IVPUSH Q2H PRN PRN Reason: Pain (severe 7-10) Promethazine HCl 12.5 mg/ (Sodium Chloride) 50.5 mls @ 100 mls/hr IV Q6H PRN PRN Reason: Nausea/Vomiting Piperacillin Sod/Tazobactam (Sod 4.5 gm/ Sodium Chloride) 100 mls @ 25 mls/hr IV Q8H [facility] Last Admin: 02/15/17 08:06 Dose: 25 mls/hr Levofloxacin/Dextrose 750 mg/ (Premix) 150 mls @ 100 mls/hr IV Q48H [facility] Ibuprofen (Motrin) 600 mg PO Q6H PRN PRN Reason: Fever Last Admin: 02/14/17 13:15 Dose: 600 mg Lorazepam (Ativan) 0.5 mg IV Q6H PRN PRN Reason: Anxiety Magnesium Sulfate (Pharmacy To Dose - Magnesium Replacement) 1 dose .XX ASDIRECTED [facility] Methotrexate (Methotrexate) 15 mg PO Mo@2100 [facility] Metoprolol Tartrate (Lopressor) 5 mg IVPUSH Q4H PRN PRN Reason: Tachycardia Naproxen (Naprosyn) 375 mg PO Q12HR [facility] Last Admin: 02/15/17 08:05 Dose: 375 mg Ondansetron HCl (Zofran Odt) 4 mg PO Q6H PRN PRN Reason: Nausea/Vomiting Ondansetron HCl (Zofran) 4 mg IV Q6H PRN PRN Reason: Nausea/Vomiting Polyethylene Glycol (Miralax) 17 gm PO DAILY PRN PRN Reason: Constipation Potassium Chloride (Pharmacy To Dose - Potassium Replacement) 1 dose .XX ASDIRECTED [facility] Prednisone (Prednisone) 5 mg PO BEDTIME [facility] Last Admin: 02/14/17 21:51 Dose: 5 mg Rosuvastatin Calcium (Crestor) 10 mg PO BEDTIME [facility] Last Admin: 02/14/17 21:51 Dose: 10 mg Saccharomyces Boulardii (Florastor) 250 mg PO TID [facility] Last Admin: 02/15/17 08:05 Dose: 250 mg Senna/Docusate Sodium (Senna Plus) 1 tab PO BID PRN PRN Reason: Constipation Temazepam (Restoril) 15 mg PO BEDTIME PRN PRN Reason: Sleep Discontinued Medications Clonazepam (Klonopin) 1 mg PO ONETIME ONE Stop: 02/13/17 23:23 Last Admin: 02/13/17 23:37 Dose: 1 mg Famotidine (Pepcid) 20 mg PO BID [facility] Last Admin: 02/14/17 09:29 Dose: 20 mg Hydromorphone HCl (Dilaudid) 0.5 mg IVPUSH ONETIME ONE Stop: 02/13/17 23:23 Last Admin: 02/13/17 23:36 Dose: 0.5 mg Dextrose/Sodium Chloride (Dextrose 5%-Normal Saline) 1,000 mls @ 999 [facility] Last Admin: 02/13/17 21:14 Dose: 999 mls/hr Sodium Chloride (Normal Saline) 100 mls @ 80 [facility] Last Admin: 02/13/17 22:32 Dose: 80 mls/hr Levofloxacin/Dextrose 750 mg/ (Premix) 150 mls @ 100 mls/hr IV ONETIME ONE Stop: 02/14/17 00:07 Last Admin: 02/13/17 22:59 Dose: 100 mls/hr Potassium Chloride 40 meq/ (Dextrose/Sodium Chloride) 1,020 mls @ 125 mls/hr IV ASDIRECTED [facility] Lactated Ringer's (Ringers, Lactated) 1,000 mls @ 125 mls/hr IV ASDIRECTED [facility] Last Admin: 02/15/17 01:44 Dose: 125 mls/hr Dextrose/Sodium Chloride (Dextrose 5%-Normal Saline) 1,000 mls @ 75 mls/hr IV ASDIRECTED [facility] Last Admin: 02/14/17 02:47 Dose: 75 mls/hr Potassium Chloride (Kcl 10 Meq In Water 100 Ml) 100 mls @ 50 mls/hr IV ASDIRECTED [facility] Last Admin: 02/14/17 13:17 Dose: 50 mls/hr Levofloxacin/Dextrose 750 mg/ (Premix) 150 mls @ 100 mls/hr IV Q24H [facility] Piperacillin Sod/Tazobactam (Sod 4.5 gm/ Sodium Chloride) 100 mls @ 200 mls/hr IV ONETIME ONE Stop: 02/14/17 09:29 Last Admin: 02/14/17 09:30 Dose: 200 mls/hr Magnesium Sulfate 2 gm/ Premix 50 mls @ 50 mls/hr IV ONETIME ONE Stop: 02/14/17 10:59 Last Admin: 02/14/17 12:58 Dose: 50 mls/hr Levofloxacin/Dextrose 750 mg/ (Premix) 150 mls @ 100 mls/hr IV Q24H [facility] Ibuprofen (Motrin) 600 mg PO ONETIME ONE Stop: 02/13/17 20:47 Last Admin: 02/13/17 21:12 Dose: 600 mg Iopamidol (Isovue-370 (76%)) 100 ml IVPUSH ONETIME ONE Stop: 02/13/17 22:05 Last Admin: 02/13/17 22:32 Dose: 60 ml Methylprednisolone Sodium Succinate (Solu-Medrol) 40 mg IVPUSH ONETIME ONE Stop: 02/13/17 22:01 Last Admin: 02/13/17 22:26 Dose: 40 mg Ondansetron HCl (Zofran) 4 mg IVPUSH ONETIME ONE Stop: 02/13/17 23:23 Last Admin: 02/13/17 23:36 Dose: 4 mg Potassium Chloride (Klor-Con M20) 20 meq PO Q3H [facility] Stop: 02/14/17 13:01 Last Admin: 02/14/17 12:24 Dose: Not Given Sodium Chloride (Saline Flush) 10 ml FLUSH ONETIME PRN PRN Reason: IV FLUSH Last Admin: 02/13/17 22:32 Dose: 10 ml - Exam General: alert, oriented, cooperative, no acute distress HEENT: Pupils equal, Pupils reactive, EOMI, Mucous membr. moist/pink Neck: supple, trachea midline, no JVD, other (no visible facial/neck edema) Lungs: Normal respiratory effort, Decreased breath sounds, Rhonchi Cardiovascular: Regular Rate, Regular Rhythm Abdomen: bowel sounds present, soft, no tenderness, no distension (Female) Exam: Deferred Back Exam: Normal Inspection, Decreased Range of Motion Extremities: no edema, normal pulses, no tenderness/swelling, no clubbing, no cyanosis, no calf tenderness, calf tenderness Peripheral Pulses: 2+: Dorsalis Pedis (L), Dorsalis Pedis (R) Skin: warm, dry, intact, other (seborrheic keratosis all over her back) Neurological: no new focal deficit Psy/Mental Status: alert, normal affect, normal mood - Problem List Review Problem List Initiated/Reviewed/Updated: Yes - My Orders Last 24 Hours: My Active Orders 02/14/17 15:12 RT Incentive Spirometry [RC] ASDIRECTED 02/14/17 17:00 Piperacillin/Tazobactam [Zosyn] 4.5 gm Sodium Chloride 0.9% [Normal Saline] 100 ml IV Q8H 02/14/17 18:30 Echo 2D wo Cont [US] Routine 02/14/17 18:57 Supplement (Dietary) [Dietary Supplements] [RC] BIDMEALS 02/14/17 21:00 Calcium Carbonate [Tums] 500 mg PO BEDTIME Folic Acid 1 mg PO BEDTIME Rosuvastatin [Crestor] 10 mg PO BEDTIME predniSONE 5 mg PO BEDTIME 02/14/17 23:17 Communication Order [RC] ASDIRECTED 02/15/17 09:00 Famotidine [Pepcid] 20 mg PO DAILY 02/15/17 09:07 Hemoccult [OCCULT BLOOD DIAGNOSTIC] [OP] Routine 02/15/17 21:00 Levofloxacin/Dextrose 5%-Water [Levaquin in D5W 750 MG/150 ML] 750 mg Premix Bag 1 bag IV Q48H 02/16/17 04:00 Diphth,Pertuss(Acell),Tet Vac [Boostrix] 0.5 ml IM .ONCE ONE 02/16/17 05:11 BASIC METABOLIC PANEL,BMP [CHEM] AM C-REACTIVE PROTEIN [CHEM] AM CBC WITH AUTO DIFF [HEME] AM MAGNESIUM [CHEM] AM 02/16/17 07:00 CBC W/O DIFF,HEMOGRAM [HEME] MOTH@0700 02/16/17 21:00 Methotrexate 15 mg PO Mo@2100 02/17/17 05:11 BASIC METABOLIC PANEL,BMP [CHEM] AM C-REACTIVE PROTEIN [CHEM] AM CBC WITH AUTO DIFF [HEME] AM MAGNESIUM [CHEM] AM 02/18/17 05:11 BASIC METABOLIC PANEL,BMP [CHEM] AM C-REACTIVE PROTEIN [CHEM] AM CBC WITH AUTO DIFF [HEME] AM MAGNESIUM [CHEM] AM 02/19/17 05:11 BASIC METABOLIC PANEL,BMP [CHEM] AM C-REACTIVE PROTEIN [CHEM] AM CBC WITH AUTO DIFF [HEME] AM MAGNESIUM [CHEM] AM 02/19/17 07:00 CBC W/O DIFF,HEMOGRAM [HEME] MOTH@0700 02/20/17 05:11 CBC WITH AUTO DIFF [HEME] AM 02/23/17 07:00 CBC W/O DIFF,HEMOGRAM [HEME] MOTH@0700 02/26/17 07:00 CBC W/O DIFF,HEMOGRAM [HEME] MOTH@0700 03/02/17 07:00 CBC W/O DIFF,HEMOGRAM [HEME] MOTH@0700 03/05/17 07:00 CBC W/O DIFF,HEMOGRAM [HEME] MOTH@0700 - Plan Plan:: Assessment/Plan: Acute: Community Acquired PNA w/ Immuno-compromised State - Risk factors: Pulmonary RA - Continue IV Levaquin/Zosyn and Probiotic - Continue IS as directed - Follow up CXR in am - She is now off Supplemental O2 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
[2017-02-15] MEDS: Ibuprofen 600 MG Tab PO PRN (15:16)
--- NOTE | 2017-02-15 17:55 | CT ---
CT facial bones Technique: Multiple axial sections through the facial bones were obtained. Reconstructed coronal and sagittal images were obtained. Findings: Lucent lesions are identified within the left mandibular condyle, left mandibular neck and posterior mandibular ramus. There are areas of cortical destruction and cortical thinning being present. Small amount of air is seen within the maxillary tooth socket which may represent infection or represent air from dental surgery. Please correlate. Paranasal sinuses show minimal mucosal thickening within the left side maxillary sinus. No air-fluid levels are seen. There is mild joint space narrowing within the right temporomandibular joint compatible with degenerative change. Impression: 1. Lucent lesions within the left mandible as described above. 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 This is possible but I believe findings are more likely due to infection or even due to metastatic disease. 2. Air within the left maxillary tooth socket either due to infection or represent recent dental surgery. Please correlate. 3. Other incidental findings. Diagnostic code #9 I agree with preliminary report issued by [facility], please see above for further discussion ([facility] preliminary report dictated on 02/13/17, 11:02 PM Central Time)
--- NOTE | 2017-02-15 17:55 | CT ---
CT chest Technique: Multiple axial sections through the chest were obtained. Intravenous contrast was utilized. Study has been performed as a pulmonary angiogram protocol. Comparison: No previous chest CT, previous chest x-ray performed earlier on the same day. Findings: Pulmonary arteries are well-opacified. No findings of pulmonary embolism are seen. Coronary artery calcification is noted. No mediastinal or hilar adenopathy is seen. No axillary adenopathy is seen. Minimal left-sided pleural effusion is seen. Scattered areas of nodular appearing densities are seen on both sides of the chest. Findings could represent multiple areas of multifocal pneumonia but I believe the findings are more suspicious for metastatic disease especially considering the mandibular lesion that was previously described. Mild increased density is seen within both lung bases. On the left side this is felt to represent some atelectasis and scarring. Other findings are likely due to mild fibrosis. Esophagus shows some wall thickening. Small hiatal hernia is seen. Impression: 1. Multiple nodules in both sides of the chest. This could be infectious but I believe findings are more likely due to metastatic disease especially given the left mandibular lesions. 2. No findings of pulmonary embolism. 3. Small hiatal hernia with esophageal wall thickening raising the possibility of chronic esophagitis. 4. Other findings as described above. Diagnostic code #9 I agree with preliminary report issued by [facility] ([facility] preliminary report dictated on 02/13/17, 11:59 PM Central Time)
--- NOTE | 2017-02-15 17:55 | CR ---
Chest: Two views of the chest were obtained. Comparison: No previous study. Nodularity is seen within the chest. Difficult to exclude metastatic disease. Mild increased density is noted within the left base with mild adjacent pleural thickening within the lateral chest as well as posterior costophrenic angle. Bony structures are unremarkable. Heart size and mediastinum are normal. Impression: 1. Nodularity within the chest. Difficult to exclude metastatic disease. 2. Mild increased density within the left base either due to atelectasis or small area of pneumonia. Adjacent pleural thickening or pleural effusion is seen on the left side. Diagnostic code #9
[2017-02-15] MEDS: Acetaminophen 325 MG Tab PO PRN (18:39)
[2017-02-15] MEDS: Calcium Carbonate 500 MG Tab.Chew PO SCH (21:38)
[2017-02-15] MEDS: Folic Acid 1 MG Tab PO SCH (21:38)
[2017-02-15] MEDS: Rosuvastatin 10 MG Tab PO SCH (21:38)
[2017-02-15] MEDS: predniSONE 5 MG Tab PO SCH (21:38)
[2017-02-15] MEDS: Levofloxacin/Dextrose 5%-Water 750 MG in Premix Bag 1 BAG IV SCH (21:39)
[2017-02-16] MEDS: Piperacillin/Tazobactam 4.5 GM in Sodium Chloride 0.9% 100 ML IV SCH ×3 (02:11→17:46)
[2017-02-16] MEDS ORDERED: Diphtheria,Pertussis(Acell),Tetanus Vaccine 0.5 ML SDV inactive IM ONE (04:00)
[2017-02-16] MEDS: Enoxaparin 40 MG/0.4 ML Syringe SUBCUT SCH (08:46)
[2017-02-16] MEDS: Famotidine 20 MG Tab PO SCH (08:46)
[2017-02-16] MEDS: Saccharomyces Boulardii (Probiotic) 250 MG Cap PO SCH ×3 (08:46→21:24)
--- NOTE | 2017-02-16 09:03 | PCM.PN ---
- General Info Date of Service: 02/16/17 Admission Dx/Problem (Free Text): Admission Diagnosis/Problem Admission Diagnosis/Problem Fever Subjective Update: Follow Up Functional Status: Reports: pain controlled, tolerating diet, ambulating, urinating. Denies: new symptoms - Patient Data Vitals - most recent: Last Vital Signs Temp 37.1 C 02/16/17 07:35 Pulse 109 H 02/16/17 07:35 Resp 16 02/16/17 07:35 BP 134/69 02/16/17 07:35 Pulse Ox 91 L 02/16/17 07:35 Weight - most recent: 61.802 kg I&O - last 24 hours: Intake & Output 02/15/17 02/16/17 02/16/17 22:59 06:59 14:59 Intake Total 1205 950 Output Total 750 2300 Balance 455 -1350 Lab Results last 24 hrs: Laboratory Results - last 24 hr 02/16/17 02/16/17 Range/Units 05:34 05:34 WBC 16.61 H (3.98-10.04) K/mm3 RBC 3.88 L (3.98-5.22) M/mm3 Hgb 10.8 L (11.2-15.7) gm/L Hct 34.8 (34.1-44.9) % MCV 89.7 (79.4-94.8) fl MCH 27.8 (25.6-32.2) pg MCHC 31.0 L (32.2-35.5) g/dl RDW Std Deviation 55.9 H (36.4-46.3) fL Plt Count 338 (182-369) K/mm3 MPV 9.6 (9.4-12.3) fl Neut % (Auto) 91.6 H (34.0-71.1) % Lymph % (Auto) 3.9 L (19.3-51.7) % [place] % (Auto) 3.7 L (4.7-12.5) % Eos % (Auto) 0.5 L (0.7-5.8) Baso % (Auto) 0.0 L (0.1-1.2) % Neut # (Auto) 15.22 H (1.56-6.13) K/mm3 Lymph # (Auto) 0.64 L (1.18-3.74) K/mm3 [place] # (Auto) 0.61 H (0.24-0.36) K/mm3 Eos # (Auto) 0.09 (0.04-0.36) K/mm3 Baso # (Auto) 0.00 L (0.01-0.08) K/mm3 Manual Slide Review Abnormal smear Sodium 143 (136-145) mEq/L Potassium 4.4 (3.5-5.1) mEq/L Chloride 108 H (98-107) mEq/L Carbon Dioxide 23 (21-32) mEq/L Anion Gap 16.4 H (5-15) BUN 16 (7-18) mg/dL Creatinine 1.0 (0.55-1.02) mg/dL Est Cr Clr Drug Dosing 38.44 mL/min Estimated GFR (MDRD) 54 (>60) mL/min BUN/Creatinine Ratio 16.0 (14-18) Glucose 113 (83-115) mg/dL Calcium 8.5 (8.5-10.1) mg/dL Magnesium 1.9 (1.8-2.4) mg/dl C-Reactive Protein 17.7 H* (<1.0) mg/dL [facility] Results last 24 hrs: Microbiology 02/16/17 05:27 Stool Occult Blood ([facility]) - Final Stool / Feces Med Orders - Current: Current Medications Acetaminophen (Tylenol) 650 mg PO Q4H PRN PRN Reason: Headache/Pain Last Admin: 02/15/17 18:39 Dose: 650 mg Hydrocodone Bitart/Acetaminophen ([place] 325-5 Mg) 1 tab PO Q4H PRN PRN Reason: Pain (moderate 4-6) Last Admin: 02/14/17 23:37 Dose: 1 tab Albuterol/Ipratropium (Duoneb 3.0-0.5 Mg/3 Ml) 3 ml NEB Q4H PRN PRN Reason: Shortness Of Breath/wheezing Bisacodyl (Dulcolax) 5 mg PO DAILY PRN PRN Reason: Constipation Last Admin: 02/15/17 15:21 Dose: 5 mg Calcium Carbonate/Glycine (Tums) 500 mg PO BEDTIME AGUSTIN Last Admin: 02/15/17 21:38 Dose: 500 mg Docusate Sodium (Colace) 100 mg PO BID PRN PRN Reason: Constipation Enoxaparin Sodium (Lovenox) 40 mg SUBCUT DAILY [facility] [place] Last Admin: 02/16/17 08:46 Dose: 40 mg Famotidine (Pepcid) 20 mg PO DAILY [facility] [place] Last Admin: 02/16/17 08:46 Dose: 20 mg Folic Acid (Folic Acid) 1 mg PO BEDTIME [facility] [place] Last Admin: 02/15/17 21:38 Dose: 1 mg Hydralazine HCl (Apresoline) 20 mg IVPUSH Q4H PRN PRN Reason: Hypertension Last Admin: 02/16/17 06:00 Dose: 20 mg Hydromorphone HCl (Dilaudid) 0.25 mg IVPUSH Q2H PRN PRN Reason: Pain (severe 7-10) Promethazine HCl 12.5 mg/ (Sodium Chloride) 50.5 mls @ 100 mls/hr IV Q6H PRN PRN Reason: Nausea/Vomiting Piperacillin Sod/Tazobactam (Sod 4.5 gm/ Sodium Chloride) 100 mls @ 25 mls/hr IV Q8H [facility] [place] Last Admin: 02/16/17 08:46 Dose: 25 mls/hr Levofloxacin/Dextrose 750 mg/ (Premix) 150 mls @ 100 mls/hr IV Q48H [facility] [place] Last Admin: 02/15/17 21:39 Dose: 100 mls/hr Ibuprofen (Motrin) 600 mg PO Q6H PRN PRN Reason: Fever Last Admin: 02/15/17 15:16 Dose: 600 mg Lorazepam (Ativan) 0.5 mg IV Q6H PRN PRN Reason: Anxiety Magnesium Sulfate (Pharmacy To Dose - Magnesium Replacement) 1 dose .XX ASDIRECTED [facility] [place] Methotrexate (Methotrexate) 15 mg PO Mo@2100 [facility] [place] Metoprolol Tartrate (Lopressor) 5 mg IVPUSH Q4H PRN PRN Reason: Tachycardia Naproxen (Naprosyn) 375 mg PO Q12HR [facility] [place] Last Admin: 02/16/17 08:46 Dose: 375 mg Ondansetron HCl (Zofran Odt) 4 mg PO Q6H PRN PRN Reason: Nausea/Vomiting Ondansetron HCl (Zofran) 4 mg IV Q6H PRN PRN Reason: Nausea/Vomiting Polyethylene Glycol (Miralax) 17 gm PO DAILY PRN PRN Reason: Constipation Potassium Chloride (Pharmacy To Dose - Potassium Replacement) 1 dose .XX ASDIRECTED [facility] [place] Prednisone (Prednisone) 5 mg PO BEDTIME [facility] [place] Last Admin: 02/15/17 21:38 Dose: 5 mg Rosuvastatin Calcium (Crestor) 10 mg PO BEDTIME [facility] [place] Last Admin: 02/15/17 21:38 Dose: 10 mg Saccharomyces Boulardii (Florastor) 250 mg PO TID [facility] [place] Last Admin: 02/16/17 08:46 Dose: 250 mg Senna/Docusate Sodium (Senna Plus) 1 tab PO BID PRN PRN Reason: Constipation Temazepam (Restoril) 15 mg PO BEDTIME PRN PRN Reason: Sleep Last Admin: 02/15/17 21:38 Dose: 15 mg Discontinued Medications Clonazepam (Klonopin) 1 mg PO ONETIME ONE Stop: 02/13/17 23:23 Last Admin: 02/13/17 23:37 Dose: 1 mg Diphtheria/Tetanus/Acell Pertussis (Boostrix) 0.5 ml IM .ONCE ONE Stop: 02/16/17 04:01 Famotidine (Pepcid) 20 mg PO BID [facility] [place] Last Admin: 02/14/17 09:29 Dose: 20 mg Hydromorphone HCl (Dilaudid) 0.5 mg IVPUSH ONETIME ONE Stop: 02/13/17 23:23 Last Admin: 02/13/17 23:36 Dose: 0.5 mg Dextrose/Sodium Chloride (Dextrose 5%-Normal Saline) 1,000 mls @ 999 mls/hr IV ASDIRECTED [facility] [place] Last Admin: 02/13/17 21:14 Dose: 999 mls/hr Sodium Chloride (Normal Saline) 100 mls @ 80 mls/hr IV ASDIRECTED [facility] [place] Last Admin: 02/13/17 22:32 Dose: 80 mls/hr Levofloxacin/Dextrose 750 mg/ (Premix) 150 mls @ 100 mls/hr IV ONETIME ONE Stop: 02/14/17 00:07 Last Admin: 02/13/17 22:59 Dose: 100 mls/hr Potassium Chloride 40 meq/ (Dextrose/Sodium Chloride) 1,020 mls @ 125 mls/hr IV ASDIRECTED [facility] [place] Lactated Ringer's (Ringers, Lactated) 1,000 mls @ [facility] Last Admin: 02/15/17 01:44 Dose: 125 mls/hr Dextrose/Sodium Chloride (Dextrose 5%-Normal Saline) 1,000 mls @ 75 mls/hr IV ASDIRECTED [facility] [place] Last Admin: 02/14/17 02:47 Dose: 75 mls/hr Potassium Chloride (Kcl 10 Meq In Water 100 Ml) 100 mls @ 50 mls/hr IV ASDIRECTED [facility] [place] Last Admin: 02/14/17 13:17 Dose: 50 mls/hr Levofloxacin/Dextrose 750 mg/ (Premix) 150 mls @ 100 mls/hr IV Q24H [facility] [place] Piperacillin Sod/Tazobactam (Sod 4.5 gm/ Sodium Chloride) 100 mls @ 200 mls/hr IV ONETIME ONE Stop: 02/14/17 09:29 Last Admin: 02/14/17 09:30 Dose: 200 mls/hr Magnesium Sulfate 2 gm/ Premix 50 mls @ 50 mls/hr IV ONETIME ONE Stop: 02/14/17 10:59 Last Admin: 02/14/17 12:58 Dose: 50 mls/hr Levofloxacin/Dextrose 750 mg/ (Premix) 150 mls @ 100 mls/hr IV Q24H [facility] [place] Ibuprofen (Motrin) 600 mg PO ONETIME ONE Stop: 02/13/17 20:47 Last Admin: 02/13/17 21:12 Dose: 600 mg Iopamidol (Isovue-370 (76%)) 100 ml IVPUSH ONETIME ONE Stop: 02/13/17 22:05 Last Admin: 02/13/17 22:32 Dose: 60 ml Methylprednisolone Sodium Succinate (Solu-Medrol) 40 mg IVPUSH ONETIME ONE Stop: 02/13/17 22:01 Last Admin: 02/13/17 22:26 Dose: 40 mg Ondansetron HCl (Zofran) 4 mg IVPUSH ONETIME ONE Stop: 02/13/17 23:23 Last Admin: 02/13/17 23:36 Dose: 4 mg Potassium Chloride (Klor-Con M20) 20 meq PO Q3H [facility] [place] Stop: 02/14/17 13:01 Last Admin: 02/14/17 12:24 Dose: Not Given Sodium Chloride (Saline Flush) 10 ml FLUSH ONETIME PRN PRN Reason: IV FLUSH Last Admin: 02/13/17 22:32 Dose: 10 ml - My Orders Last 24 Hours: My Active Orders 02/15/17 09:00 Famotidine [Pepcid] 20 mg PO DAILY 02/15/17 18:26 Acetaminophen [Tylenol] 650 mg PO Q4H PRN 02/15/17 21:00 Levofloxacin/Dextrose 5%-Water [Levaquin in D5W 750 MG/150 ML] 750 mg Premix Bag 1 bag IV Q48H 02/16/17 18:30 Echo Comp wo Cont [US] Routine 02/16/17 21:00 Methotrexate 15 mg PO Mo@2100 02/17/17 05:11 BASIC METABOLIC PANEL,BMP [CHEM] AM C-REACTIVE PROTEIN [CHEM] AM CBC WITH AUTO DIFF [HEME] AM MAGNESIUM [CHEM] AM 02/18/17 05:11 BASIC METABOLIC PANEL,BMP [CHEM] AM C-REACTIVE PROTEIN [CHEM] AM CBC WITH AUTO DIFF [HEME] AM MAGNESIUM [CHEM] AM 02/19/17 05:11 BASIC METABOLIC PANEL,BMP [CHEM] AM C-REACTIVE PROTEIN [CHEM] AM CBC WITH AUTO DIFF [HEME] AM MAGNESIUM [CHEM] AM 02/20/17 05:11 CBC WITH AUTO DIFF [HEME] AM - Plan Plan:: Assessment/Plan: Acute: Community Acquired PNA w/ Immuno-compromised State - Risk factors: Pulmonary RA - Continue IV Levaquin/Zosyn and Probiotic - Continue IS as directed - Follow up CXR in am - She is now off Supplemental O2 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
--- NOTE | 2017-02-16 09:38 | PCM.PN ---
- General Info Date of Service: 02/16/17 Admission Dx/Problem (Free Text): Admission Diagnosis/Problem Admission Diagnosis/Problem Fever, PNA, AUTI Patient is seen on team rounding this morning. She is tired but otherwise feeling better. Afebrile overnight. Functional Status: Reports: pain controlled, tolerating diet (improved appetite) , ambulating, urinating. Denies: new symptoms - Review of Systems General: Reports: Weakness. Denies: Fever HEENT: Reports: no symptoms Pulmonary: Reports: cough (improving) Cardiovascular: Reports: No Symptoms. Denies: Chest Pain Gastrointestinal: Reports: No symptoms. Denies: Abdominal pain Genitourinary: Reports: no symptoms. Denies: dysuria, pain Musculoskeletal: Reports: other (chronic joint pain r/t RA) Neurological: Reports: No Symptoms Psychiatric: Reports: no symptoms - Patient Data Vitals - most recent: Last Vital Signs Temp 98.8 F 02/16/17 07:35 Pulse 109 H 02/16/17 07:35 Resp 16 02/16/17 07:35 BP 134/69 02/16/17 07:35 Pulse Ox 91 L 02/16/17 07:35 Weight - most recent: 136 lb 4 oz I&O - last 24 hours: Intake & Output 02/15/17 02/16/17 02/16/17 22:59 06:59 14:59 Intake Total 1205 950 Output Total 750 2300 Balance 455 -1350 Lab Results last 24 hrs: Laboratory Results - last 24 hr 02/16/17 02/16/17 Range/Units 05:34 05:34 WBC 16.61 H (3.98-10.04) K/mm3 RBC 3.88 L (3.98-5.22) M/mm3 Hgb 10.8 L (11.2-15.7) gm/L Hct 34.8 (34.1-44.9) % MCV 89.7 (79.4-94.8) fl MCH 27.8 (25.6-32.2) pg MCHC 31.0 L (32.2-35.5) g/dl RDW Std Deviation 55.9 H (36.4-46.3) fL Plt Count 338 (182-369) K/mm3 MPV 9.6 (9.4-12.3) fl Neut % (Auto) 91.6 H (34.0-71.1) % Lymph % (Auto) 3.9 L (19.3-51.7) % [place] % (Auto) 3.7 L (4.7-12.5) % Eos % (Auto) 0.5 L (0.7-5.8) Baso % (Auto) 0.0 L (0.1-1.2) % Neut # (Auto) 15.22 H (1.56-6.13) K/mm3 Lymph # (Auto) 0.64 L (1.18-3.74) K/mm3 [place] # (Auto) 0.61 H (0.24-0.36) K/mm3 Eos # (Auto) 0.09 (0.04-0.36) K/mm3 Baso # (Auto) 0.00 L (0.01-0.08) K/mm3 Manual Slide Review Abnormal smear Sodium 143 (136-145) mEq/L Potassium 4.4 (3.5-5.1) mEq/L Chloride 108 H (98-107) mEq/L Carbon Dioxide 23 (21-32) mEq/L Anion Gap 16.4 H (5-15) BUN 16 (7-18) mg/dL Creatinine 1.0 (0.55-1.02) mg/dL Est Cr Clr Drug Dosing 38.44 mL/min Estimated GFR (MDRD) 54 (>60) mL/min BUN/Creatinine Ratio 16.0 (14-18) Glucose 113 (83-115) mg/dL Calcium 8.5 (8.5-10.1) mg/dL Magnesium 1.9 (1.8-2.4) mg/dl C-Reactive Protein 17.7 H* (<1.0) mg/dL [facility] Results last 24 hrs: Microbiology 02/16/17 05:27 Stool Occult Blood ([facility]) - Final Stool / Feces Med Orders - Current: Current Medications Acetaminophen (Tylenol) 650 mg PO Q4H PRN PRN Reason: Headache/Pain Last Admin: 02/15/17 18:39 Dose: 650 mg Hydrocodone Bitart/Acetaminophen ([place] 325-5 Mg) 1 tab PO Q4H PRN PRN Reason: Pain (moderate 4-6) Last Admin: 02/14/17 23:37 Dose: 1 tab Albuterol/Ipratropium (Duoneb 3.0-0.5 Mg/3 Ml) 3 ml NEB Q4H PRN PRN Reason: Shortness Of Breath/wheezing Bisacodyl (Dulcolax) 5 mg PO DAILY PRN PRN Reason: Constipation Last Admin: 02/15/17 15:21 Dose: 5 mg Calcium Carbonate/Glycine (Tums) 500 mg PO BEDTIME [facility] Last Admin: 02/15/17 21:38 Dose: 500 mg Docusate Sodium (Colace) 100 mg PO BID PRN PRN Reason: Constipation Enoxaparin Sodium (Lovenox) 40 mg SUBCUT DAILY [facility] Last Admin: 02/16/17 08:46 Dose: 40 mg Famotidine (Pepcid) 20 mg PO DAILY [facility] Last Admin: 02/16/17 08:46 Dose: 20 mg Folic Acid (Folic Acid) 1 mg PO BEDTIME [facility] Last Admin: 02/15/17 21:38 Dose: 1 mg Hydralazine HCl (Apresoline) 20 mg IVPUSH Q4H PRN PRN Reason: Hypertension Last Admin: 02/16/17 06:00 Dose: 20 mg Hydromorphone HCl (Dilaudid) 0.25 mg IVPUSH Q2H PRN PRN Reason: Pain (severe 7-10) Promethazine HCl 12.5 mg/ (Sodium Chloride) 50.5 mls @ 100 mls/hr IV Q6H PRN PRN Reason: Nausea/Vomiting Piperacillin Sod/Tazobactam (Sod 4.5 gm/ Sodium Chloride) 100 mls @ 25 mls/hr IV Q8H [facility] Last Admin: 02/16/17 08:46 Dose: 25 mls/hr Levofloxacin/Dextrose 750 mg/ (Premix) 150 mls @ 100 mls/hr IV Q48H [facility] Last Admin: 02/15/17 21:39 Dose: 100 mls/hr Ibuprofen (Motrin) 600 mg PO Q6H PRN PRN Reason: Fever Last Admin: 02/15/17 15:16 Dose: 600 mg Lorazepam (Ativan) 0.5 mg IV Q6H PRN PRN Reason: Anxiety Magnesium Oxide (Magnesium Oxide) 400 mg PO TID [facility] Stop: 02/16/17 21:01 Magnesium Sulfate (Pharmacy To Dose - Magnesium Replacement) 1 dose .XX ASDIRECTED [facility] Methotrexate (Methotrexate) 15 mg PO Mo@2100 [facility] Metoprolol Tartrate (Lopressor) 5 mg IVPUSH Q4H PRN PRN Reason: Tachycardia Naproxen (Naprosyn) 375 mg PO Q12HR [facility] Last Admin: 02/16/17 08:46 Dose: 375 mg Ondansetron HCl (Zofran Odt) 4 mg PO Q6H PRN PRN Reason: Nausea/Vomiting Ondansetron HCl (Zofran) 4 mg IV Q6H PRN PRN Reason: Nausea/Vomiting Polyethylene Glycol (Miralax) 17 gm PO DAILY PRN PRN Reason: Constipation Potassium Chloride (Pharmacy To Dose - Potassium Replacement) 1 dose .XX ASDIRECTED [facility] Prednisone (Prednisone) 5 mg PO BEDTIME [facility] Last Admin: 02/15/17 21:38 Dose: 5 mg Rosuvastatin Calcium (Crestor) 10 mg PO BEDTIME [facility] Last Admin: 02/15/17 21:38 Dose: 10 mg Saccharomyces Boulardii (Florastor) 250 mg PO TID [facility] Last Admin: 02/16/17 08:46 Dose: 250 mg Senna/Docusate Sodium (Senna Plus) 1 tab PO BID PRN PRN Reason: Constipation Temazepam (Restoril) 15 mg PO BEDTIME PRN PRN Reason: Sleep Last Admin: 02/15/17 21:38 Dose: 15 mg Discontinued Medications Clonazepam (Klonopin) 1 mg PO ONETIME ONE Stop: 02/13/17 23:23 Last Admin: 02/13/17 23:37 Dose: 1 mg Diphtheria/Tetanus/Acell Pertussis (Boostrix) 0.5 ml IM .ONCE ONE Stop: 02/16/17 04:01 Famotidine (Pepcid) 20 mg PO BID [facility] Last Admin: 02/14/17 09:29 Dose: 20 mg Hydromorphone HCl (Dilaudid) 0.5 mg IVPUSH ONETIME ONE Stop: 02/13/17 23:23 Last Admin: 02/13/17 23:36 Dose: 0.5 mg Dextrose/Sodium Chloride (Dextrose 5%-Normal Saline) 1,000 mls @ 999 mls/hr IV ASDIRECTED [facility] Last Admin: 02/13/17 21:14 Dose: 999 mls/hr Sodium Chloride (Normal Saline) 100 mls @ 80 mls/hr IV ASDIRECTED [facility] Last Admin: 02/13/17 22:32 Dose: 80 mls/hr Levofloxacin/Dextrose 750 mg/ (Premix) 150 mls @ 100 mls/hr IV ONETIME ONE Stop: 02/14/17 00:07 Last Admin: 02/13/17 22:59 Dose: 100 mls/hr Potassium Chloride 40 meq/ (Dextrose/Sodium Chloride) 1,020 mls @ 125 mls/hr IV ASDIRECTED [facility] Lactated Ringer's (Ringers, Lactated) 1,000 mls @ 125 mls/hr IV ASDIRECTED [facility] Last Admin: 02/15/17 01:44 Dose: 125 mls/hr Dextrose/Sodium Chloride (Dextrose 5%-Normal Saline) 1,000 mls @ 75 mls/hr IV ASDIRECTED [facility] Last Admin: 02/14/17 02:47 Dose: 75 mls/hr Potassium Chloride (Kcl 10 Meq In Water 100 Ml) 100 mls @ 50 mls/hr IV ASDIRECTED [facility] Last Admin: 02/14/17 13:17 Dose: 50 mls/hr Levofloxacin/Dextrose 750 mg/ (Premix) 150 mls @ 100 mls/hr IV Q24H [facility] Piperacillin Sod/Tazobactam (Sod 4.5 gm/ Sodium Chloride) 100 mls @ 200 mls/hr IV ONETIME ONE Stop: 02/14/17 09:29 Last Admin: 02/14/17 09:30 Dose: 200 mls/hr Magnesium Sulfate 2 gm/ Premix 50 mls @ 50 mls/hr IV ONETIME ONE Stop: 02/14/17 10:59 Last Admin: 02/14/17 12:58 Dose: 50 mls/hr Levofloxacin/Dextrose 750 mg/ (Premix) 150 mls @ 100 mls/hr IV Q24H [facility] Ibuprofen (Motrin) 600 mg PO ONETIME ONE Stop: 02/13/17 20:47 Last Admin: 02/13/17 21:12 Dose: 600 mg Iopamidol (Isovue-370 (76%)) 100 ml IVPUSH ONETIME ONE Stop: 02/13/17 22:05 Last Admin: 02/13/17 22:32 Dose: 60 ml Methylprednisolone Sodium Succinate (Solu-Medrol) 40 mg IVPUSH ONETIME ONE Stop: 02/13/17 22:01 Last Admin: 02/13/17 22:26 Dose: 40 mg Ondansetron HCl (Zofran) 4 mg IVPUSH ONETIME ONE Stop: 02/13/17 23:23 Last Admin: 02/13/17 23:36 Dose: 4 mg Potassium Chloride (Klor-Con M20) 20 meq PO Q3H [facility] Stop: 02/14/17 13:01 Last Admin: 02/14/17 12:24 Dose: Not Given Sodium Chloride (Saline Flush) 10 ml FLUSH ONETIME PRN PRN Reason: IV FLUSH Last Admin: 02/13/17 22:32 Dose: 10 ml - Exam Quality Assessment: DVT prophylaxis General: alert, oriented, cooperative, no acute distress HEENT: Pupils equal, Pupils reactive, EOMI, Mucous membr. moist/pink Neck: supple Lungs: Clear to auscultation, Normal respiratory effort, Decreased breath sounds (bases), Rhonchi Cardiovascular: Regular Rate, Regular Rhythm Abdomen: bowel sounds present, soft, no tenderness (Female) Exam: Deferred Extremities: no edema Peripheral Pulses: 1+: Dorsalis Pedis (L), Dorsalis Pedis (R) Neurological: no new focal deficit Psy/Mental Status: alert, normal affect, normal mood - Problem List Review Problem List Initiated/Reviewed/Updated: Yes - My Orders Last 24 Hours: My Active Orders 02/16/17 09:08 Chest 2V [CR] Routine 02/16/17 09:12 FE, TIBC, TRANSFERRIN, FE SAT [CHEM] Routine FOLIC ACID [CHEM] Routine VITAMIN B12 [CHEM] Routine - Plan Plan:: Assessment/Plan: Acute: Community Acquired PNA w/ Immuno-compromised State - Risk factors: Pulmonary RA - Continue IV Levaquin/Zosyn and Probiotic - Continue IS as directed - Follow up CXR today - She is now off Supplemental O2 maintaining saturations 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
[2017-02-16] MEDS: Magnesium Oxide 400 MG Tab PO SCH ×3 (11:15→21:24)
--- NOTE | 2017-02-16 11:43 | CR ---
Chest: Two views of the chest were obtained. Comparison: Previous chest CT performed on 02/13/17 and chest x-ray of 02/13/17. Continued blunting of the left lateral and posterior costophrenic angle is seen. Slight parenchymal density is seen within the left base remaining stable. Nodular densities remain within the chest suspicious for metastatic disease. Heart size and mediastinum are also stable. Impression: 1. Continuing nodules within the chest suspicious for metastatic disease. 2. Stable blunting of the left lateral and posterior costophrenic angle as well as mild chronic parenchymal change within the left base. Diagnostic code #9 [employer] called report to Keesha Miner at 11:30 on 02/16/2017
[2017-02-16] MEDS: Acetaminophen 325 MG Tab PO PRN (18:05)
[2017-02-16] MEDS: Ondansetron 4 MG/2 ML SDV IV PRN (18:16)
[2017-02-16] MEDS ORDERED: Methotrexate 2.5 MG Tab PO SCH (21:00)
[2017-02-16] MEDS: Rosuvastatin 10 MG Tab PO SCH (21:24)
[2017-02-16] MEDS: Folic Acid 1 MG Tab PO SCH (21:24)
[2017-02-16] MEDS: Calcium Carbonate 500 MG Tab.Chew PO SCH (21:24)
[2017-02-16] MEDS: predniSONE 5 MG Tab PO SCH (21:24)
[2017-02-17] MEDS: Piperacillin/Tazobactam 4.5 GM in Sodium Chloride 0.9% 100 ML IV SCH ×3 (00:14→16:45)
[2017-02-17] MEDS: Acetaminophen/HYDROcodone 325-5 MG Tab PO PRN ×2 (00:15→20:20)
[2017-02-17] MEDS ORDERED: Methotrexate 2.5 MG Tab PO ONE (08:00)
[2017-02-17] MEDS: Saccharomyces Boulardii (Probiotic) 250 MG Cap PO SCH ×3 (08:58→20:19)
[2017-02-17] MEDS: Famotidine 20 MG Tab PO SCH (08:58)
[2017-02-17] MEDS: Enoxaparin 40 MG/0.4 ML Syringe SUBCUT SCH (08:59)
[2017-02-17] MEDS ORDERED: HYDROmorphone 0.5 MG/0.5 ML Syringe IVPUSH PRN (09:51)
--- NOTE | 2017-02-17 11:07 | PCM.PN ---
- General Info Date of Service: 02/17/17 Admission Dx/Problem (Free Text): Admission Diagnosis/Problem Admission Diagnosis/Problem Fever, PNA, AUTI Subjective Update: Follow Up Functional Status: Reports: pain controlled, tolerating diet, ambulating, urinating. Denies: new symptoms - Review of Systems General: Denies: Fever, Weakness, Fatigue, Malaise, Chills HEENT: Reports: no symptoms, other (Sore on the left cheek) Pulmonary: Reports: no symptoms Cardiovascular: Reports: No Symptoms Gastrointestinal: Denies: Abdominal pain, Difficulty swallowing, Nausea, Vomiting Genitourinary: Reports: no symptoms Musculoskeletal: Reports: no symptoms Skin: Reports: no symptoms Neurological: Denies: Confusion, Headache, Difficulty Walking, Weakness, Gait Disturbance Psychiatric: Denies: depression, anxiety, agitation, hallucinations Systems Review Comment:: No overnight or acute issues. She slept good. She has no new complaints. - Patient Data Vitals - most recent: Last Vital Signs Temp 36.8 C 02/17/17 08:07 Pulse 88 02/17/17 08:07 Resp 18 02/17/17 08:07 BP 153/66 H 02/17/17 08:07 Pulse Ox 91 L 02/17/17 08:07 Weight - most recent: 60.328 kg I&O - last 24 hours: Intake & Output 02/16/17 02/17/17 02/17/17 22:59 06:59 14:59 Intake Total 520 1038 Output Total 1000 375 Balance -480 663 Lab Results last 24 hrs: Laboratory Results - last 24 hr 02/16/17 02/17/17 02/17/17 Range/Units 10:50 05:54 05:54 WBC 14.75 H (3.98-10.04) K/mm3 RBC 3.25 L (3.98-5.22) M/mm3 Hgb 8.8 L (11.2-15.7) gm/L Hct 29.1 L (34.1-44.9) % MCV 89.5 (79.4-94.8) fl MCH 27.1 (25.6-32.2) pg MCHC 30.2 L (32.2-35.5) g/dl RDW Std Deviation 56.0 H (36.4-46.3) fL Plt Count 350 (182-369) K/mm3 MPV 9.5 (9.4-12.3) fl Neut % (Auto) 89.5 H (34.0-71.1) % Lymph % (Auto) 4.9 L (19.3-51.7) % Dickey % (Auto) 4.9 (4.7-12.5) % Eos % (Auto) 0.3 L (0.7-5.8) Baso % (Auto) 0.1 (0.1-1.2) % Neut # (Auto) 13.19 H (1.56-6.13) K/mm3 Lymph # (Auto) 0.73 L (1.18-3.74) K/mm3 Dickey # (Auto) 0.72 H (0.24-0.36) K/mm3 Eos # (Auto) 0.05 (0.04-0.36) K/mm3 Baso # (Auto) 0.01 (0.01-0.08) K/mm3 Manual Slide Review Abnormal smear Sodium 141 (136-145) mEq/L Potassium 4.3 (3.5-5.1) mEq/L Chloride 109 H (98-107) mEq/L Carbon Dioxide 27 (21-32) mEq/L Anion Gap 9.3 (5-15) BUN 14 (7-18) mg/dL Creatinine 0.9 (0.55-1.02) mg/dL Est Cr Clr Drug Dosing 42.72 mL/min Estimated GFR (MDRD) > 60 (>60) mL/min BUN/Creatinine Ratio 15.6 (14-18) Glucose 123 H (83-115) mg/dL Calcium 8.2 L (8.5-10.1) mg/dL Magnesium 2.0 (1.8-2.4) mg/dl Iron 13 L (50-170) ug/dL TIBC 185 (100-400) ug/dL % Saturation 7 L (20-55) % Transferrin 148 L (202-364) mg/dL C-Reactive Protein 21.0 H* (<1.0) mg/dL Vitamin B12 498 (193-986) pg/ml Folate 18.7 (8.6-58.9) ng/mL Howard Results last 24 hrs: Microbiology 02/16/17 05:27 Stool Occult Blood (HOWARD) - Final Stool / Feces Med Orders - Current: Current Medications Acetaminophen (Tylenol) 650 mg PO Q4H PRN PRN Reason: Headache/Pain Last Admin: 02/16/17 18:05 Dose: 650 mg Hydrocodone Bitart/Acetaminophen ([place] 325-5 Mg) 1 tab PO Q4H PRN PRN Reason: Pain (moderate 4-6) Last Admin: 02/17/17 00:15 Dose: 1 tab Albuterol/Ipratropium (Duoneb 3.0-0.5 Mg/3 Ml) 3 ml NEB Q4H PRN PRN Reason: Shortness Of Breath/wheezing Bisacodyl (Dulcolax) 5 mg PO DAILY PRN PRN Reason: Constipation Last Admin: 02/15/17 15:21 Dose: 5 mg Calcium Carbonate/Glycine (Tums) 500 mg PO BEDTIME [facility] Last Admin: 02/16/17 21:24 Dose: 500 mg Docusate Sodium (Colace) 100 mg PO BID PRN PRN Reason: Constipation Enoxaparin Sodium (Lovenox) 40 mg SUBCUT DAILY [facility] Last Admin: 02/17/17 08:59 Dose: 40 mg Famotidine (Pepcid) 20 mg PO DAILY [facility] Last Admin: 02/17/17 08:58 Dose: 20 mg Folic Acid (Folic Acid) 1 mg PO BEDTIME [facility] Last Admin: 02/16/17 21:24 Dose: 1 mg Hydralazine HCl (Apresoline) 20 mg IVPUSH Q4H PRN PRN Reason: Hypertension Last Admin: 02/16/17 06:00 Dose: 20 mg Hydromorphone HCl (Dilaudid) 0.25 mg IVPUSH Q2H PRN PRN Reason: Pain (severe 7-10) Promethazine HCl 12.5 mg/ (Sodium Chloride) 50.5 mls @ 100 mls/hr IV Q6H PRN PRN Reason: Nausea/Vomiting Piperacillin Sod/Tazobactam (Sod 4.5 gm/ Sodium Chloride) 100 mls @ 25 mls/hr IV Q8H [facility] Last Admin: 02/17/17 09:00 Dose: 25 mls/hr Levofloxacin/Dextrose 750 mg/ (Premix) 150 mls @ 100 mls/hr IV Q48H [facility] Last Admin: 02/15/17 21:39 Dose: 100 mls/hr Ibuprofen (Motrin) 600 mg PO Q6H PRN PRN Reason: Fever Last Admin: 02/15/17 15:16 Dose: 600 mg Lorazepam (Ativan) 0.5 mg IV Q6H PRN PRN Reason: Anxiety Magnesium Sulfate (Pharmacy To Dose - Magnesium Replacement) 1 dose .XX ASDIRECTED [facility] Methotrexate (Methotrexate) 15 mg PO Mo@2100 [facility] Last Admin: 02/17/17 00:15 Dose: Not Given Metoprolol Tartrate (Lopressor) 5 mg IVPUSH Q4H PRN PRN Reason: Tachycardia Naproxen (Naprosyn) 375 mg PO Q12HR [facility] Last Admin: 02/17/17 08:58 Dose: 375 mg Ondansetron HCl (Zofran Odt) 4 mg PO Q6H PRN PRN Reason: Nausea/Vomiting Ondansetron HCl (Zofran) 4 mg IV Q6H PRN PRN Reason: Nausea/Vomiting Last Admin: 02/16/17 18:16 Dose: 4 mg Polyethylene Glycol (Miralax) 17 gm PO DAILY PRN PRN Reason: Constipation Potassium Chloride (Pharmacy To Dose - Potassium Replacement) 1 dose .XX ASDIRECTED [facility] Prednisone (Prednisone) 5 mg PO BEDTIME [facility] Last Admin: 02/16/17 21:24 Dose: 5 mg Rosuvastatin Calcium (Crestor) 10 mg PO BEDTIME [facility] Last Admin: 02/16/17 21:24 Dose: 10 mg Saccharomyces Boulardii (Florastor) 250 mg PO TID [facility] Last Admin: 02/17/17 08:58 Dose: 250 mg Senna/Docusate Sodium (Senna Plus) 1 tab PO BID PRN PRN Reason: Constipation Temazepam (Restoril) 15 mg PO BEDTIME PRN PRN Reason: Sleep Last Admin: 02/15/17 21:38 Dose: 15 mg Discontinued Medications Clonazepam (Klonopin) 1 mg PO ONETIME ONE Stop: 02/13/17 23:23 Last Admin: 02/13/17 23:37 Dose: 1 mg Diphtheria/Tetanus/Acell Pertussis (Boostrix) 0.5 ml IM .ONCE ONE Stop: 02/16/17 04:01 Famotidine (Pepcid) 20 mg PO BID [facility] Last Admin: 02/14/17 09:29 Dose: 20 mg Hydromorphone HCl (Dilaudid) 0.5 mg IVPUSH ONETIME ONE Stop: 02/13/17 23:23 Last Admin: 02/13/17 23:36 Dose: 0.5 mg Hydromorphone HCl (Dilaudid) 0.25 mg IVPUSH Q2H PRN PRN Reason: Pain (severe 7-10) Dextrose/Sodium Chloride (Dextrose 5%-Normal Saline) 1,000 mls @ 999 mls/hr IV ASDIRECTED [facility] Last Admin: 02/13/17 21:14 Dose: 999 mls/hr Sodium Chloride (Normal Saline) 100 mls @ 80 mls/hr IV ASDIRECTED [facility] Last Admin: 02/13/17 22:32 Dose: 80 mls/hr Levofloxacin/Dextrose 750 mg/ (Premix) 150 mls @ 100 mls/hr IV ONETIME ONE Stop: 02/14/17 00:07 Last Admin: 02/13/17 22:59 Dose: 100 mls/hr Potassium Chloride 40 meq/ (Dextrose/Sodium Chloride) 1,020 mls @ 125 mls/hr IV ASDIRECTED [facility] Lactated Ringer's (Ringers, Lactated) 1,000 mls @ 125 mls/hr IV ASDIRECTED [facility] Last Admin: 02/15/17 01:44 Dose: 125 mls/hr Dextrose/Sodium Chloride (Dextrose 5%-Normal Saline) 1,000 mls @ 75 mls/hr IV ASDIRECTED [facility] Last Admin: 02/14/17 02:47 Dose: 75 mls/hr Potassium Chloride (Kcl 10 Meq In Water 100 Ml) 100 mls @ 50 mls/hr IV ASDIRECTED [facility] Last Admin: 02/14/17 13:17 Dose: 50 mls/hr Levofloxacin/Dextrose 750 mg/ (Premix) 150 mls @ 100 mls/hr IV Q24H AGUSTIN Piperacillin Sod/Tazobactam (Sod 4.5 gm/ Sodium Chloride) 100 mls @ 200 mls/hr IV ONETIME ONE Stop: 02/14/17 09:29 Last Admin: 02/14/17 09:30 Dose: 200 mls/hr Magnesium Sulfate 2 gm/ Premix 50 mls @ 50 mls/hr IV ONETIME ONE Stop: 02/14/17 10:59 Last Admin: 02/14/17 12:58 Dose: 50 mls/hr Levofloxacin/Dextrose 750 mg/ (Premix) 150 mls @ 100 mls/hr IV Q24H [facility] Ibuprofen (Motrin) 600 mg PO ONETIME ONE Stop: 02/13/17 20:47 Last Admin: 02/13/17 21:12 Dose: 600 mg Iopamidol (Isovue-370 (76%)) 100 ml IVPUSH ONETIME ONE Stop: 02/13/17 22:05 Last Admin: 02/13/17 22:32 Dose: 60 ml Magnesium Oxide (Magnesium Oxide) 400 mg PO TID [facility] Stop: 02/16/17 21:01 Last Admin: 02/16/17 21:24 Dose: 400 mg Methotrexate (Methotrexate) 15 mg PO ONETIME ONE Stop: 02/17/17 08:01 Last Admin: 02/17/17 08:58 Dose: 15 mg Methylprednisolone Sodium Succinate (Solu-Medrol) 40 mg IVPUSH ONETIME ONE Stop: 02/13/17 22:01 Last Admin: 02/13/17 22:26 Dose: 40 mg Ondansetron HCl (Zofran) 4 mg IVPUSH ONETIME ONE Stop: 02/13/17 23:23 Last Admin: 02/13/17 23:36 Dose: 4 mg Potassium Chloride (Klor-Con M20) 20 meq PO Q3H [facility] Stop: 02/14/17 13:01 Last Admin: 02/14/17 12:24 Dose: Not Given Sodium Chloride (Saline Flush) 10 ml FLUSH ONETIME PRN PRN Reason: IV FLUSH Last Admin: 02/13/17 22:32 Dose: 10 ml - Exam General: alert, oriented, no acute distress, mild distress HEENT: Pupils equal, Pupils reactive, EOMI, Mucous membr. moist/pink Neck: supple, trachea midline, no JVD Lungs: Normal respiratory effort, Decreased breath sounds, Rales Cardiovascular: Regular Rate, Regular Rhythm Abdomen: bowel sounds present, soft, no tenderness, no distension (Female) Exam: Deferred Back Exam: Normal Inspection, Decreased Range of Motion Extremities: no edema, normal pulses, no tenderness/swelling, no clubbing, no cyanosis, no calf tenderness Peripheral Pulses: 2+: Dorsalis Pedis (L), Dorsalis Pedis (R) Skin: warm, dry, intact, ecchymosis Neurological: no new focal deficit Psy/Mental Status: alert, normal affect, normal mood - Problem List Review Problem List Initiated/Reviewed/Updated: Yes - My Orders Last 24 Hours: My Active Orders 02/16/17 21:00 Methotrexate 15 mg PO Mo@2100 02/17/17 09:51 HYDROmorphone [Dilaudid] 0.25 mg IVPUSH Q2H PRN 02/18/17 05:11 BASIC METABOLIC PANEL,BMP [CHEM] AM C-REACTIVE PROTEIN [CHEM] AM CBC WITH AUTO DIFF [HEME] AM MAGNESIUM [CHEM] AM 02/19/17 05:11 BASIC METABOLIC PANEL,BMP [CHEM] AM C-REACTIVE PROTEIN [CHEM] AM CBC WITH AUTO DIFF [HEME] AM MAGNESIUM [CHEM] AM 02/20/17 05:11 CBC WITH AUTO DIFF [HEME] AM - Plan Plan:: Assessment/Plan: Acute: Community Acquired PNA w/ Immuno-compromised State - Risk factors: Pulmonary RA - Continue IV Levaquin/Zosyn and Probiotic - Continue IS as directed - Follow up CXR: No worsening of initial abnormal findings - She is now off Supplemental O2 maintaining saturations 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 - Saw dentist 2 days ago, was told "its healing up well" - She is eating and drinking w/o much difficulty - Continue NSAIDs - Salt solution to gurgle BID Leukoctyosis - WBC 15.43 ---> 17.18--> 16.6 --> 14.75 - Demargination vs Infection - She is on steroid daily Anemia of Chronic Disease - Hgb is 8.8 today - 2/2 RA--hemoccult negative - Iron Panel: low iron and TIBC --> Chronic Illness in etiology - B12 and folic acid both within normal limits - Iron infusion x1 sometime today CTA Findings - Left Small Pleural Effusion likely from RA - Multiple Pulmonary Nodules likely form Pulmonary RA but she had a hx/o smoking so we cannot exclude malignancy - No baseline CT scan - Will defer PET scan until she sees Dr. Puentes, Child Development Director in [place] and Pulmonology as well High Risk for Osteoporosis - 2/2 daily steroid use - On oral calcium supplement - May need DEXA scan, outpatient Resolved: S/p Elevated D-Dimer - 4.36 - 2/2 PNA and Pleural Effusion - CTA negative for PE S/p Hypomagnesemia - Mg 1.6 - Likely from inadequate intake due to TMJ problem - Will replete and monitor Chronic: HLD RA on MTX and Prednisone Osteopenia on CT scan Plan: She is remains clinically stable Routine AM Labs Discontinue PT/OT; she has been ambulating on her own SW/CM for d/c planning Encourage to Ambulated TID-QID as tolerated Additional orders as above Code status: 1 Offered to d/c today but family would like for her to stay one more night; she will go home tomorrow
[2017-02-17] MEDS: Levofloxacin/Dextrose 5%-Water 750 MG in Premix Bag 1 BAG IV SCH (20:19)
[2017-02-17] MEDS: Rosuvastatin 10 MG Tab PO SCH (20:20)
[2017-02-17] MEDS: predniSONE 5 MG Tab PO SCH (20:20)
[2017-02-17] MEDS: Calcium Carbonate 500 MG Tab.Chew PO SCH (20:20)
[2017-02-17] MEDS: Folic Acid 1 MG Tab PO SCH (20:20)
[2017-02-18] MEDS: Piperacillin/Tazobactam 4.5 GM in Sodium Chloride 0.9% 100 ML IV SCH ×2 (00:02→08:26)
[2017-02-18] MEDS: Acetaminophen/HYDROcodone 325-5 MG Tab PO PRN (03:04)
--- NOTE | 2017-02-18 07:38 | PCM.DCSUM1 ---
Discharge Summary - Hospital Course Brief History: This is a 76-year-old elderly white female with past medical history of hyperlipidemia and degenerative joint disease who comes in to the emergency department with 2 separate complaints: 1) left temporo-mandibular pain associated with edema status post tooth extraction and 2) left sided pleuritic chest pain associated with some productive cough along with fever and chills. She was admitted for medical management primarily for pneumonia. - Discharge Data Discharge Date: 02/18/17 Discharge Disposition: Home, Self-Care 01 Condition: Good - Patient Summary/Data Operative Procedure(s) Performed: None Complications: None Consults: Consultations 02/14/17 08:45 Consult to Case Management [CONS] Routine Consult to Director Of Field Coordination [CONS] Routine OT Evaluation and Treatment [CONS] Routine PT Evaluation and Treatment [CONS] Routine Respiratory Care Assess and Treatment [CONS] Routine Hospital Course: Patient was primarily admitted for community-acquired pneumonia. She was given 2 course of antibiotic given her immuno-compromised state to cover for problematic bugs. She was negative for blood culture and no sputum culture was obtained. With routine respiratory care, the patient slowly improved on this regimen. On this admission, she was also found to have urinary tract infection. She grew Escherichia coli on her culture and the organism was pansensitive to both Levaquin and Zosyn. Her hospital course was fairly uncomplicated. Her oral intake improved as her facial edema improves with anti-inflammatory agents. The rest of her chronic medical illness remained stable during this admission. Patient will be discharged with additional course of oral antibiotic to complete along with incentive spirometry for respiratory care. She was advised to follow-up with Dr. Felder", rheumatologists in [facility] for her RA and her dentist for recent tooth extraction. She will be referred to see a rn occupational in [facility] as well for further evaluation of multiple pulmonary nodules noted on her Chest CT scan. She was further advised to call her primary care for any questions or concerns after discharge. The patient expressed understanding and in agreement with the plans as discussed above. All questions were answered. - Patient Instructions Diet: Usual Diet as Tolerated Activity: As Tolerated Driving: Do Not Drive Showering/Bathing: May Shower Notify Provider of: Fever, Increased Pain, Nausea and/or Vomiting Other/Special Instructions: - Please all medications as directed. - CBC check next week for Anemia. - You need to see the following specialists: Rheumatology and Pulmonology - Keep you follow up appointment with your family doctor as scheduled. - Call your family doctor for any questions or concerns - Discharge Plan Prescriptions/Med Rec: Aspirin 81 mg PO BRK #30 tab.chew Levofloxacin [Levaquin] 750 mg PO DAILY #3 tablet Home Medications: Home Meds Methotrexate Sodium [Methotrexate] 6 tab PO WEEKLY 02/13/17 [History] atorvaSTATin [Lipitor] 40 mg PO BEDTIME 02/13/17 [History] predniSONE [Prednisone] 5 mg PO BEDTIME 02/13/17 [History] Calcium Carbonate [Calcium] 500 mg PO BEDTIME 02/14/17 [History] Folic Acid 1 mg PO BEDTIME 02/14/17 [History] Aspirin 81 mg PO BRK #30 tab.chew 02/18/17 [Rx] Levofloxacin [Levaquin] 750 mg PO DAILY #3 tablet 02/18/17 [Rx] Patient Handouts: Urinary Tract Infection, Adult, [id number], E. Coli Infection, Community-Acquired Pneumonia, Adult, [id number] Referrals: Brenda Morris MD [Ordering Only Provider] - 08/20/17 11:00 am (at [facility] at [facility] [address] th in [place] come 15 minites early for appointment, testing at 11:30 all times [place] time ) Rafael Colmenares MD [Ordering Only Provider] - (at [facility] specialty [address] come 15 minutes prior to appointment they will call you to schedule an appointment after reviewing the test from here) Santo Tanner [Physician] - 02/26/17 11:00 am (come to [facility] ( [facility]) come 30 minutes before appointment to register, complete paperwork and bring insurance cards & photo ID.) - Discharge Summary/Plan Comment DC Time >30 min.: Yes (45 mins) Discharge Summary/Plan Comment: Discharge to Home - General Info Date of Service: 02/18/17 Admission Dx/Problem (Free Text: Admission Diagnosis/Problem Admission Diagnosis/Problem Fever, PNA, AUTI Subjective Update: Follow Up Functional Status: Reports: pain controlled, tolerating diet, ambulating, urinating. Denies: new symptoms - Review of Systems General: Denies: Fever, Weakness, Fatigue, Malaise, Chills HEENT: Reports: no symptoms Pulmonary: Denies: shortness of breath, pleuritic chest pain, cough, wheezing Cardiovascular: Denies: Chest Pain, Palpitations, Dyspnea on Exertion, Edema Gastrointestinal: Denies: Abdominal pain, Difficulty swallowing, Nausea, Vomiting Genitourinary: Reports: no symptoms Musculoskeletal: Reports: no symptoms Skin: Reports: bruising. Denies: cyanosis, rash Neurological: Denies: Confusion, Difficulty Walking, Weakness, Gait Disturbance Psychiatric: Denies: depression, anxiety, hallucinations Systems Review Comment: No overnight or acute issues. She remains relatively well. She has no new complaints. - Patient Data Vitals - Most Recent: Last Vital Signs Temp 36.4 C 02/18/17 06:18 Pulse 80 02/18/17 06:18 Resp 12 02/18/17 06:18 BP 152/70 H 02/18/17 06:26 Pulse Ox 90 L 02/18/17 06:18 Weight - Most Recent: 60.146 kg I&O - Last 24 hours: Intake & Output 02/17/17 02/18/17 02/18/17 22:59 06:59 14:59 Intake Total 585 550 Output Total 675 700 Balance -90 -150 Lab Results - Last 24 hrs: Laboratory Results - last 24 hr 02/18/17 Range/Units 05:22 WBC 13.41 H (3.98-10.04) K/mm3 RBC 3.21 L (3.98-5.22) M/mm3 Hgb 8.8 L (11.2-15.7) gm/L Hct 28.9 L (34.1-44.9) % MCV 90.0 (79.4-94.8) fl MCH 27.4 (25.6-32.2) pg MCHC 30.4 L (32.2-35.5) g/dl RDW Std Deviation 56.3 H (36.4-46.3) fL Plt Count 358 (182-369) K/mm3 MPV 9.5 (9.4-12.3) fl Neut % (Auto) 88.5 H (34.0-71.1) % Lymph % (Auto) 5.6 L (19.3-51.7) % [place] % (Auto) 4.9 (4.7-12.5) % Eos % (Auto) 0.6 L (0.7-5.8) Baso % (Auto) 0.0 L (0.1-1.2) % Neut # (Auto) 11.87 H (1.56-6.13) K/mm3 Lymph # (Auto) 0.75 L (1.18-3.74) K/mm3 [place] # (Auto) 0.66 H (0.24-0.36) K/mm3 Eos # (Auto) 0.08 (0.04-0.36) K/mm3 Baso # (Auto) 0.00 L (0.01-0.08) K/mm3 Manual Slide Review Abnormal smear Med Orders - Current: Current Medications Acetaminophen (Tylenol) 650 mg PO Q4H PRN PRN Reason: Headache/Pain Last Admin: 02/16/17 18:05 Dose: 650 mg Hydrocodone Bitart/Acetaminophen ([place] 325-5 Mg) 1 tab PO Q4H PRN PRN Reason: Pain (moderate 4-6) Last Admin: 02/18/17 03:04 Dose: 1 tab Albuterol/Ipratropium (Duoneb 3.0-0.5 Mg/3 Ml) 3 ml NEB Q4H PRN PRN Reason: Shortness Of Breath/wheezing Bisacodyl (Dulcolax) 5 mg PO DAILY PRN PRN Reason: Constipation Last Admin: 02/15/17 15:21 Dose: 5 mg Calcium Carbonate/Glycine (Tums) 500 mg PO BEDTIME [facility] Last Admin: 02/17/17 20:20 Dose: 500 mg Docusate Sodium (Colace) 100 mg PO BID PRN PRN Reason: Constipation Enoxaparin Sodium (Lovenox) 40 mg SUBCUT DAILY [facility] Last Admin: 02/17/17 08:59 Dose: 40 mg Famotidine (Pepcid) 20 mg PO DAILY [facility] Last Admin: 02/17/17 08:58 Dose: 20 mg Folic Acid (Folic Acid) 1 mg PO BEDTIME [facility] Last Admin: 02/17/17 20:20 Dose: 1 mg Hydralazine HCl (Apresoline) 20 mg IVPUSH Q4H PRN PRN Reason: Hypertension Last Admin: 02/16/17 06:00 Dose: 20 mg Hydromorphone HCl (Dilaudid) 0.25 mg IVPUSH Q2H PRN PRN Reason: Pain (severe 7-10) Promethazine HCl 12.5 mg/ (Sodium Chloride) 50.5 mls @ 100 mls/hr IV Q6H PRN PRN Reason: Nausea/Vomiting Piperacillin Sod/Tazobactam (Sod 4.5 gm/ Sodium Chloride) 100 mls @ 25 mls/hr IV Q8H [facility] Last Admin: 02/18/17 00:02 Dose: 25 mls/hr Levofloxacin/Dextrose 750 mg/ (Premix) 150 mls @ 100 mls/hr IV Q48H [facility] Last Admin: 02/17/17 20:19 Dose: 100 mls/hr Sodium Ferric Gluconat/Sucrose (250 mg/ Sodium Chloride) 120 mls @ 60 mls/hr IV ONETIME ONE Stop: 02/18/17 09:59 Ibuprofen (Motrin) 600 mg PO Q6H PRN PRN Reason: Fever Last Admin: 02/15/17 15:16 Dose: 600 mg Lorazepam (Ativan) 0.5 mg IV Q6H PRN PRN Reason: Anxiety Magnesium Sulfate (Pharmacy To Dose - Magnesium Replacement) 1 dose .XX ASDIRECTED [facility] Methotrexate (Methotrexate) 15 mg PO Mo@2100 [facility] Last Admin: 02/17/17 00:15 Dose: Not Given Metoprolol Tartrate (Lopressor) 5 mg IVPUSH Q4H PRN PRN Reason: Tachycardia Naproxen (Naprosyn) 375 mg PO Q12HR [facility] Last Admin: 02/17/17 20:20 Dose: 375 mg Ondansetron HCl (Zofran Odt) 4 mg PO Q6H PRN PRN Reason: Nausea/Vomiting Last Admin: 02/18/17 06:30 Dose: 4 mg Ondansetron HCl (Zofran) 4 mg IV Q6H PRN PRN Reason: Nausea/Vomiting Last Admin: 02/16/17 18:16 Dose: 4 mg Polyethylene Glycol (Miralax) 17 gm PO DAILY PRN PRN Reason: Constipation Potassium Chloride (Pharmacy To Dose - Potassium Replacement) 1 dose .XX ASDIRECTED [facility] Prednisone (Prednisone) 5 mg PO BEDTIME [facility] Last Admin: 02/17/17 20:20 Dose: 5 mg Rosuvastatin Calcium (Crestor) 10 mg PO BEDTIME [facility] Last Admin: 02/17/17 20:20 Dose: 10 mg Saccharomyces Boulardii (Florastor) 250 mg PO TID [facility] Last Admin: 02/17/17 20:19 Dose: 250 mg Senna/Docusate Sodium (Senna Plus) 1 tab PO BID PRN PRN Reason: Constipation Temazepam (Restoril) 15 mg PO BEDTIME PRN PRN Reason: Sleep Last Admin: 02/15/17 21:38 Dose: 15 mg Discontinued Medications Clonazepam (Klonopin) 1 mg PO ONETIME ONE Stop: 02/13/17 23:23 Last Admin: 02/13/17 23:37 Dose: 1 mg Diphtheria/Tetanus/Acell Pertussis (Boostrix) 0.5 ml IM .ONCE ONE Stop: 02/16/17 04:01 Famotidine (Pepcid) 20 mg PO BID [facility] Last Admin: 02/14/17 09:29 Dose: 20 mg Hydromorphone HCl (Dilaudid) 0.5 mg IVPUSH ONETIME ONE Stop: 02/13/17 23:23 Last Admin: 02/13/17 23:36 Dose: 0.5 mg Hydromorphone HCl (Dilaudid) 0.25 mg IVPUSH Q2H PRN PRN Reason: Pain (severe 7-10) Dextrose/Sodium Chloride (Dextrose 5%-Normal Saline) 1,000 mls @ 999 mls/hr IV ASDIRECTED [facility] Last Admin: 02/13/17 21:14 Dose: 999 mls/hr Sodium Chloride (Normal Saline) 100 mls @ 80 mls/hr IV ASDIRECTED [facility] Last Admin: 02/13/17 22:32 Dose: 80 mls/hr Levofloxacin/Dextrose 750 mg/ (Premix) 150 mls @ 100 mls/hr IV ONETIME ONE Stop: 02/14/17 00:07 Last Admin: 02/13/17 22:59 Dose: 100 mls/hr Potassium Chloride 40 meq/ (Dextrose/Sodium Chloride) 1,020 mls @ 125 mls/hr IV ASDIRECTED [facility] Lactated Ringer's (Ringers, Lactated) 1,000 mls @ 125 mls/hr IV ASDIRECTED [facility] Last Admin: 02/15/17 01:44 Dose: 125 mls/hr Dextrose/Sodium Chloride (Dextrose 5%-Normal Saline) 1,000 mls @ 75 mls/hr IV ASDIRECTED [facility] Last Admin: 02/14/17 02:47 Dose: 75 mls/hr Potassium Chloride (Kcl 10 Meq In Water 100 Ml) 100 mls @ 50 mls/hr IV ASDIRECTED [facility] Last Admin: 02/14/17 13:17 Dose: 50 mls/hr Levofloxacin/Dextrose 750 mg/ (Premix) 150 mls @ 100 mls/hr IV Q24H [facility] Piperacillin Sod/Tazobactam (Sod 4.5 gm/ Sodium Chloride) 100 mls @ 200 mls/hr IV ONETIME ONE Stop: 02/14/17 09:29 Last Admin: 02/14/17 09:30 Dose: 200 mls/hr Magnesium Sulfate 2 gm/ Premix 50 mls @ 50 mls/hr IV ONETIME ONE Stop: 02/14/17 10:59 Last Admin: 02/14/17 12:58 Dose: 50 mls/hr Levofloxacin/Dextrose 750 mg/ (Premix) 150 mls @ 100 mls/hr IV Q24H [facility] Iron Sucrose 200 mg/ Sodium (Chloride) 260 mls @ 83 mls/hr IV ONETIME ONE Stop: 02/17/17 21:07 Ibuprofen (Motrin) 600 mg PO ONETIME ONE Stop: 02/13/17 20:47 Last Admin: 02/13/17 21:12 Dose: 600 mg Iopamidol (Isovue-370 (76%)) 100 ml IVPUSH ONETIME ONE Stop: 02/13/17 22:05 Last Admin: 02/13/17 22:32 Dose: 60 ml Magnesium Oxide (Magnesium Oxide) 400 mg PO TID [facility] Stop: 02/16/17 21:01 Last Admin: 02/16/17 21:24 Dose: 400 mg Methotrexate (Methotrexate) 15 mg PO ONETIME ONE Stop: 02/17/17 08:01 Last Admin: 02/17/17 08:58 Dose: 15 mg Methylprednisolone Sodium Succinate (Solu-Medrol) 40 mg IVPUSH ONETIME ONE Stop: 02/13/17 22:01 Last Admin: 02/13/17 22:26 Dose: 40 mg Ondansetron HCl (Zofran) 4 mg IVPUSH ONETIME ONE Stop: 02/13/17 23:23 Last Admin: 02/13/17 23:36 Dose: 4 mg Potassium Chloride (Klor-Con M20) 20 meq PO Q3H [facility] Stop: 02/14/17 13:01 Last Admin: 02/14/17 12:24 Dose: Not Given Sodium Chloride (Saline Flush) 10 ml FLUSH ONETIME PRN PRN Reason: IV FLUSH Last Admin: 02/13/17 22:32 Dose: 10 ml - Exam Quality Assessment: Denies: supplemental oxygen General: Reports: alert, oriented, cooperative, no acute distress HEENT: Reports: Pupils equal, Pupils reactive, EOMI, Mucous membr. moist/pink Neck: Reports: supple, trachea midline, no JVD, no thyromegaly Lungs: Reports: Normal respiratory effort, Decreased breath sounds, Rales Cardiovascular: Reports: Regular Rate, Regular Rhythm Abdomen: Reports: bowel sounds present, soft, no tenderness, no distension (Female) Exam: Deferred Rectal (Female) Exam: Deferred Back Exam: Reports: Normal Inspection, Decreased Range of Motion Extremities: Reports: no edema, normal pulses, no tenderness/swelling, no clubbing, no cyanosis, no calf tenderness, calf tenderness Skin: Reports: warm, dry, intact, ecchymosis Neurological: Reports: no new focal deficit Psy/Mental Status: Reports: alert, normal affect, normal mood *Q Meaningful Use (DIS) - VTE *Q VTE Criteria *Q: - Stroke *Q Stroke Criteria *Q: - AMI *Q AMI Criteria *Q:
[2017-02-18] MEDS: Enoxaparin 40 MG/0.4 ML Syringe SUBCUT SCH (08:26)
[2017-02-18] MEDS: Famotidine 20 MG Tab PO SCH (08:27)
[2017-02-18] MEDS: Saccharomyces Boulardii (Probiotic) 250 MG Cap PO SCH (08:27)
[2017-02-18] MEDS: Ondansetron 4 MG/2 ML SDV IV PRN (09:51)
[2017-02-18 12:11] VITALS: BP 161/80
[2017-02-18] MEDS ORDERED: Diphtheria,Pertussis(Acell),Tetanus Vaccine 0.5 ML SDV inactive IM ONE (12:41)
[2017-02-18] MEDS ORDERED: Diphtheria,Pertussis(Acell),Tetanus Vaccine 0.5 ML SDV IM ONE (13:30)
== END 2017-02-18 13:10 | disposition home or self-care (01) | DRG 194 ==
LOC: JD.ED 20:05 → JD.MS 23:32
PROVIDERS: ADMIT Internal Medicine; ATTEND Internal Medicine
DX: J18.9 Pneumonia, unspecified organism (principal); M26.69 Other specified disorders of temporomandibular joint; N39.0 Urinary tract infection, site not specified; M26.602 Left temporomandibular joint disorder, unspecified; J90 Pleural effusion, not elsewhere classified; B96.20 Unspecified Escherichia coli [E. coli] as the cause of diseases classified elsewhere; D63.8 Anemia in other chronic diseases classified elsewhere; D72.829 Elevated white blood cell count, unspecified; M06.9 Rheumatoid arthritis, unspecified; R91.8 Other nonspecific abnormal finding of lung field; E78.5 Hyperlipidemia, unspecified; E61.2 Magnesium deficiency; Z98.818 Other dental procedure status; Z79.899 Other long term (current) drug therapy; Z87.891 Personal history of nicotine dependence; R06.02 Shortness of breath
CPT/HCPCS: 36415; 70486; 71020; 71275; 80053; 81001; 83605; 83735; 83880; 84484; 85025; 85379; 85610; 85652; 86140; 87040 ×2; 87086; 87186; 93005; 96365; 96366; 96368; 96375; 99285; A9270; J1956; J2920; J7030; J7042; J7050; Q9967; 80048; 82272; 82607; 82746; 83540; 84466; 87088; 90715; 93306; 97116-GP; 97162-GP; 97165-GO; 97535-GO; J0360; J1170; J1650; J2405; J2543; J2916; J3475; J3480; J7120; J8610

== ENCOUNTER 2018-02-19 12:24 | Emergency (ER) | payer MEDICARE, BC ==
[2018-02-19 12:43] VITALS: BP 180/100
[2018-02-19] MEDS ORDERED: Sodium Chloride 0.9% 1,000 ML IV ONE (13:23)
--- NOTE | 2018-02-19 13:28 | EDM.PDOC ---
ED HPI GENERAL MEDICAL PROBLEM - General Chief Complaint: Abdominal Pain Stated Complaint: DEHYDRATED Time Seen by Provider: 02/19/18 12:58 Source of Information: Reports: Patient, Old Records History Limitations: Reports: No Limitations - History of Present Illness INITIAL COMMENTS - FREE TEXT/NARRATIVE: Medical records indicate that the patient was seen by Dr. Perea in this ED on , 02/11/2018, after suffering a near-syncopal episode at home. Her CBC, CMP, and troponin were unremarkable. She has a history of a DVT, therefore underwent a CT angiogram of the chest, which showed no PE. Her urinalysis was interpreted as consistent with a UTI, therefore she was given a single dose of Rocephin 2g and discharged home with a prescription for Macrobid. The patient states that she took the Macrobid twice a day, as prescribed, finishing it on or about this past 02/16/2018. She states that her urinary symptoms resolved. She followed up with Dr. Tanner in the clinic today , as requested, where she was found to be orthostatic. She was directed here. The patient states that she has had watery diarrhea and left-sided abdominal pain for the past 3 weeks. She states that she has been feeling lightheaded when she is upright for about a week. No recent chest pain, palpitations, or dyspnea. Left Abdomen Pain Score (Numeric/FACES): 5 - Related Data Allergies Allergy/AdvReac Type Severity Reaction Status Date / Time No Known Allergies Allergy Verified 02/13/17 20:19 Home Meds: Home Meds atorvaSTATin [Lipitor] 40 mg PO BEDTIME 02/13/17 [History] predniSONE [Prednisone] 5 mg PO BEDTIME 02/13/17 [History] Calcium Carbonate [Calcium] 500 mg PO BEDTIME 02/14/17 [History] Folic Acid 1 mg PO BEDTIME 02/14/17 [History] Leflunomide [Arava] 10 mg PO DAILY 02/11/18 [History] Omeprazole 40 mg PO DAILY 02/11/18 [History] Apixaban [Eliquis] 5 mg PO BID 02/19/18 [History] Past Medical History HEENT History: Reports: Impaired Vision Cardiovascular History: Reports: Blood Clots/VTE/DVT (RLE), High Cholesterol Gastrointestinal History: Reports: GERD, PUD (hx bleeding ullcer) Genitourinary History: Reports: Urinary Incontinence (stress incontinence) [employer] History: Reports: Musculoskeletal History: Reports: RA Hematologic History: Reports: Blood Transfusion(s) Immunologic History: Reports: Immunosuppression (on leflunomide (Avara)) Oncologic (Cancer) History: Reports: Basal Cell Carcinoma (face), 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) - Infectious Disease History Infectious Disease History: Reports: Chicken Pox, Influenza, Measles, Shingles - Past Surgical History HEENT Surgical History: Reports: Oral Surgery (3 wisdom teeth extracted) Respiratory Surgical History: Reports: Other (See Below) (Bronchoscopy) GI Surgical History: Reports: Colonoscopy, EGD Female Surgical History: Reports: D&C (x 1) Musculoskeletal Surgical History: Reports: Knee Replacement (left) Oncologic Surgical History: Reports: Other (See Below) (Vulvectomy 2004) Dermatological Surgical History: Reports: Skin Biopsy (vulva) Social & Family History - Family History Family Medical History: Noncontributory - Tobacco Use Smoking Status *Q: Former Smoker Years of Tobacco use: 10 Packs/Tins Daily: 1 Month/Year Tobacco Last Used: Quit 1968 - Caffeine Use Caffeine Use: Reports: Coffee, Soda, Tea - Alcohol Use Alcohol Use History: Yes Alcohol Use Frequency: Socially - Recreational Drug Use Recreational Drug Use: No - Living Situation & Occupation Living situation: Reports: , with Spouse Occupation: Retired ED ROS GENERAL - Review of Systems Review Of Systems: ROS reveals no pertinent complaints other than HPI. ED EXAM, GI/ABD - Physical Exam Exam: See Below Exam Limited By: No Limitations General Appearance: Alert, WD/WN, No Apparent Distress Eyes: Bilateral: Normal Appearance, EOMI Ears: Normal External Exam, Hearing Grossly Normal Nose: Normal Inspection, No Blood Throat/Mouth: Normal Inspection, Normal Lips, Normal Voice, No Airway Compromise Head: Atraumatic, Normocephalic Neck: Normal Inspection, Full Range of Motion Respiratory/Chest: No Respiratory Distress, Lungs Clear, Normal Breath Sounds, No Accessory Muscle Use Cardiovascular: Normal Peripheral Pulses, Regular Rate, Rhythm, No Gallop, No JVD, No Murmur, No Rub GI/Abdominal Exam: Normal Bowel Sounds, Soft, No Organomegaly, No Distention, No Abnormal Bruit, No Mass, Tender (Left upper quadrant primarily, less to the left lower quadrant. Nontender on the right.) (Female) Exam: Deferred Rectal (Female) Exam: Deferred Back Exam: Normal Inspection, Full Range of Motion, NT Extremities: Normal Inspection, Normal Range of Motion, Normal Capillary Refill Neurological: Alert, Oriented, Normal Cognition, No Motor/Sensory Deficits Psychiatric: Normal Affect Skin Exam: Warm, Dry, Intact, Normal Color, No Rash Course - Vital Signs Last Recorded V/S: Last Vital Signs Temp 36.6 C 02/19/18 12:42 Pulse 100 02/19/18 12:42 Resp 20 02/19/18 12:42 BP 180/100 H 02/19/18 12:42 Pulse Ox 96 02/19/18 12:42 Orthostatic Blood Pressure [ 184/101 Sitting] Orthostatic Blood Pressure [ 195/105 Standing] Orthostatic Blood Pressure [ 190/87 Supine] - Orders/Labs/Meds Orders: Active Orders 24 hr Category Date Time Status CULTURE STOOL + SHIGATOX [RM] Stat Lab 02/19/18 15:31 Ordered ROTAVIRUS DIRECT ANTIGEN STOOL [OP] Stat Lab 02/19/18 15:31 COMP WBC, STOOL [OP] Stat Lab 02/19/18 15:31 COMP Labs: Laboratory Tests 02/19/18 02/19/18 02/19/18 Range/Units 13:57 13:57 15:31 WBC 8.40 (3.98-10.04) K/mm3 RBC 4.70 (3.98-5.22) M/mm3 Hgb 13.7 (11.2-15.7) gm/L Hct 42.1 (34.1-44.9) % MCV 89.6 (79.4-94.8) fl MCH 29.1 (25.6-32.2) pg MCHC 32.5 (32.2-35.5) g/dl RDW Std Deviation 47.0 H (36.4-46.3) fL Plt Count 193 (182-369) K/mm3 MPV 10.4 (9.4-12.3) fl Neutrophils % (Manual) 74 H (40-60) % Band Neutrophils % 3 (0-10) % Lymphocytes % (Manual) 11 L (20-40) % Atypical Lymphs % 0 % Monocytes % (Manual) 7 (2-10) % Eosinophils % (Manual) 5 (0.7-5.8) % Basophils % (Manual) 0 L (0.1-1.2) Platelet Estimate Adequate RBC Morph Comment Normal Sodium 139 (136-145) mEq/L Potassium 3.4 L (3.5-5.1) mEq/L Chloride 104 (98-107) mEq/L Carbon Dioxide 26 (21-32) mEq/L Anion Gap 12.4 (5-15) BUN 20 H (7-18) mg/dL Creatinine 0.8 (0.55-1.02) mg/dL Est Cr Clr Drug Dosing 45.14 mL/min Estimated GFR (MDRD) > 60 (>60) mL/min BUN/Creatinine Ratio 25.0 H (14-18) Glucose 82 L (83-115) mg/dL Calcium 8.6 (8.5-10.1) mg/dL Total Bilirubin 0.8 (0.2-1.0) mg/dL AST 35 (15-37) U/L ALT 22 (14-59) U/L Alkaline Phosphatase 104 (46-116) U/L Total Protein 6.2 L (6.4-8.2) g/dl Albumin 2.4 L (3.4-5.0) g/dl Globulin 3.8 gm/dL Albumin/Globulin Ratio 0.6 L (1-2) Lipase 134 (73-393) U/L C.difficile [id number] Presumptive negative C. difficile Tox (PCR) Negative Meds: Medications Discontinued Medications Generic Name Dose Route Start Last Admin Trade Name Freq PRN Reason Stop Dose Admin Diatrizoate Meglum/Diatrizoate Sod 90 ml 02/19/18 14:45 02/19/18 14:51 Gastrografin 37% PO 02/19/18 14:46 90 ml ONETIME ONE Administration Sodium Chloride 1,000 mls @ 999 mls/hr 02/19/18 13:23 02/19/18 13:43 Normal Saline IV 02/19/18 14:23 999 mls/hr ONETIME ONE Administration Iopamidol 100 ml 02/19/18 14:45 02/19/18 14:51 Isovue-300 (61%) IVPUSH 02/19/18 14:46 100 ml ONETIME ONE Administration Sodium Chloride 10 ml 02/19/18 14:45 02/19/18 14:51 Saline Flush FLUSH 10 ml ONETIME PRN Administration IV FLUSH - Re-Assessments/Exams Free Text/Narrative Re-Assessment/Exam: 02/19/18 13:25 The patient presents with orthostasis along with 3 weeks of watery diarrhea and left-sided abdominal cramps. She is tender to palpation to the left side of her abdomen. In addition to blood work orthostatics, I have ordered a CT scan of the abdomen and pelvis with oral and IV contrast, as well as stool studies, including C. difficile. 02/19/18 13:27 The patient is orthostatic, although not as severely as had been reported from the clinic. I have ordered 1 L normal saline, then we will recheck orthostatics. 02/19/18 15:04 Following 1 L of NS, the patient is no longer orthostatic. 02/19/18 15:52 CT of the abdomen and pelvis with oral and IV contrast is read by Dr. Yee as: 1. Prominent bowel wall thickening within the sigmoid colon. Finding presumably represents nonspecific colitis. Endoscopy could be considered to further evaluate. 2. Other incidental findings as noted above. 02/19/18 17:[address] eYe at 17:00. The distribution of the sigmoid colitis crosses more than one blood supply, therefore ischemic colitis is not likely. The patient will need a colonoscopy, as lymphoma can have this presentation. 02/19/18 17:09 Test results discussed with the patient. While the patient was orthostatic initially, this resolved after 1 L of IV fluid. Her CT scan found sigmoid colitis, but her bloodwork was grossly unremarkable, and her stool studies, including stool WBCs and C. difficile toxin, were negative. The exact cause of her sigmoid colitis is not known, but is concerning for either autoimmune colitis versus cancerous infiltration. Either way, the patient needs a colonoscopy. I believe that she is fit enough for discharge home, and I will refer her to Dr. Morin to arrange for outpatient colonoscopy. In the meantime , the patient may safely take [id number] Imodium to treat her diarrhea. Departure - Departure Time of Disposition: 17:10 Disposition: Home, Self-Care 01 Condition: Fair Clinical Impression: Colitis, indeterminate, Orthostasis, Watery diarrhea - Discharge Information Instructions: Orthostatic Hypotension, Colitis Referrals: Santo Tanner [Primary Care Provider] - Dwight Morin MD [Physician] - Forms: ED Department Discharge Additional Instructions: You were seen in the emergency room for 3 weeks of watery diarrhea, left-sided abdominal pain, and feeling lightheaded whenever you are upright. Workup in the ER included blood work, stool studies, positional blood pressure checks, and a CT scan of your abdomen and pelvis. The CT scan found inflammation (colitis) of your sigmoid colon. Based on the tests that were done, the cause does not appear to be due to an infection or insufficient blood flow to your colon. During that the cause of your colitis could be due to an autoimmune disorder, versus cancer. You may take [id number] Imodium as needed to treat her diarrhea. Take 2 tablets up front, then 1 tablet after each loose bowel movement, not to exceed 8 tablets in a 24-hour period. Stay well hydrated. Follow-up with the surgeon Dr. Morin, to arrange for an outpatient colonoscopy. If any other problems, please do not hesitate to return to the ER. - My Orders Last 24 Hours: My Active Orders 02/19/18 15:31 CULTURE STOOL + SHIGATOX [RM] Stat ROTAVIRUS DIRECT ANTIGEN STOOL [OP] Stat WBC, STOOL [OP] Stat - Assessment/Plan Last 24 Hours: My Active Orders 02/19/18 15:31 CULTURE STOOL + SHIGATOX [RM] Stat ROTAVIRUS DIRECT ANTIGEN STOOL [OP] Stat WBC, STOOL [OP] Stat
[2018-02-19] MEDS ORDERED: Iopamidol 612 MG/ML 100 ML Bottle IVPUSH ONE (14:45)
[2018-02-19] MEDS ORDERED: Sodium Chloride 0.9% 10 ML Syringe FLUSH PRN (14:45)
[2018-02-19] MEDS ORDERED: Diatrizoate Meglumine/Diatrizoate Sodium 37% 120 ML Bottle PO ONE (14:45)
--- NOTE | 2018-02-19 15:51 | CT ---
CT abdomen and pelvis Technique: Multiple axial sections were obtained from above the dome of the diaphragm inferiorly through the pubic symphysis. Intravenous and oral contrast was utilized. Delayed images were obtained through the bladder. Findings: Diffuse bowel wall thickening is seen within the sigmoid colon. No surrounding inflammatory change is seen. Scattered diverticuli are noted within the sigmoid colon. Visualized lung bases shows nothing acute. Liver shows no focal parenchymal abnormality. Pancreas is within normal limits. Aorta shows atherosclerotic change which continues into the iliac vessels. No aneurysm is seen. Kidneys show symmetric contrast enhancement without hydronephrosis or mass. No retroperitoneal adenopathy is seen. Gallbladder contains no calcified gallstones. There is a questionable soft tissue finding within the gallbladder possibly due to gallbladder polyp. No bowel dilatation is seen. No pelvic mass or adenopathy is seen. Calcifications are seen within the uterus. Bone window settings were reviewed which shows spondylolisthesis of L4-5 with disc space narrowing. Spondylolisthesis appears to be due to degenerative apophyseal change. Delayed images shows contrast within the distal ureters and bladder. Impression: 1. Prominent bowel wall thickening within the sigmoid colon. Finding presumably represents nonspecific colitis. Endoscopy could be considered to further evaluate. 2. Other incidental findings as noted above. Diagnostic code #3
== END 2018-02-19 17:45 | disposition home or self-care (01) ==
LOC: EEVIPCON 12:24 → JD.ED 12:24
DX: K52.9 Noninfective gastroenteritis and colitis, unspecified (principal); I95.1 Orthostatic hypotension; K21.9 Gastro-esophageal reflux disease without esophagitis; Z79.899 Other long term (current) drug therapy; Z87.891 Personal history of nicotine dependence
CPT/HCPCS: 36415; 74177; 80053; 83690; 85007; 85027; 87046; 87425; 87493; 89055; 96360; 99284; J7040; J7050; Q9963; Q9967; 87427